=== PATIENT | female | born 1930 | race Caucasian/White ===

== ENCOUNTER 2018-02-26 11:55 | Emergency (ER) | payer OTHER ==
[~2018-02-26] VITALS: Ht 165.1 cm; Wt 81.2 kg
[~2018-02-26 11:55] MED LIST: ASPIRIN325 PO; HYDREA 500 MG500 M1 PO; HYDROCHLOROTHIA25 M1 PO; KLOR-CON 1010 MEQ PO; LASIX 40 MG TAB40 M2 PO; LESCOL40 MG PO; LEVAQUIN 250 M250 MG PO; LEVOTHYROXIN0.112 M1 PO; PRINIVIL20 MG PO; TOPROL XL100 MG PO; VITAMIN D2400 UNIT PO
[2018-02-26] MEDS ORDERED: REQUIP 1 MG TABL1 M1 PO (12:37)
[2018-02-26 12:48] LABS: HEMATOCRIT 57.3 % (37.0-47.0); MCH 34.8 pg (26.0-34.0); MCHC 33.2 g/dL (28.0-37.0); MCV 104.7 fL (80.0-100.0); MPV 8.8 fl. (7.2-11.1); NUCLEATED RBCS 0 /100WBC; PLATELET COUNT* 505 thou/uL (150-400); RBC 5.47 mil/uL (4.20-5.00); RDW-CV 14.8 % (10.5-14.5); WBC 15.9 thou/uL (4.0-11.0)
[2018-02-26 12:52] LABS: CALCIUM 9.1 mg/dL (8.5-10.1); CREATININE 0.8 mg/dL (0.6-1.3); POTASSIUM 3.9 mmol/L (3.5-5.1)
[2018-02-26 12:56] LABS: ALBUMIN 3.9 g/dL (3.4-5.0); TOTAL BILIRUBIN 0.5 mg/dL (<0.1-1.0); TOTAL PROTEIN 7.5 g/dL (6.4-8.2)
[2018-02-26 13:20] LABS: URINE BILIRUBIN NEGATIVE (Negative); URINE BLOOD NEGATIVE (Negative); URINE CLARITY CLEAR; URINE COLOR YELLOW; URINE GLUCOSE-RANDOM NEGATIVE (Negative); URINE KETONES NEGATIVE (Negative); URINE LEUKOCYTES-REFLEX TRACE (Negative); URINE NITRITE-REFLEX NEGATIVE (Negative); URINE PROTEIN NEGATIVE (Negative); URINE SPECIFIC GRAVITY 1.015 (1.005-1.030); URINE UROBILINOGEN 0.2 E.U./dl (0.2-1.0)
[2018-02-26 13:32] LABS: BACTERIA-REFLEX None Seen /HPF (None Seen); CASTS None Seen /LPF (None Seen); CRYSTALS None Seen /LPF (None Seen); MUCUS None Seen strn/LPF (None Seen); SQUAMOUS 4-10 Moderate /LPF (0-3); URINE WBC-REFLEX 0-5 Rare /HPF (0-5)
[2018-02-26 13:49] LABS: ABSOLUTE LYMPHOCYTES 0.5 thou/uL (0.8-5.3); ABSOLUTE MONOCYTES 1.3 thou/uL (0.0-1.2); ABSOLUTE NEUTROPHILS 14.2 thou/uL (1.6-8.1); PLATELET ESTIMATE INCREASED
[2018-02-26 13:51] LABS: MACROCYTES 1+
[2018-02-26 13:54] LABS: URINE RBC None Seen /HPF (0-2)
[2018-02-26 14:44] VITALS: BP 142/63
--- NOTE | 2018-02-27 14:28 | EKG ---
[place] [address] ELECTROCARDIOGRAM REPORT Name: AFSHIN GARCES Room: [facility]#: [id number] Admission: 02/26/18 Attend Phys: Discharge: 02/26/18 Date of : 32 Report #: [id number] THIS REPORT FOR: //name// [facility] ED Test Date: 2018-02-26 Test Time: 12:08:26 Pat Name: AFSHIN GARCES Department: Room: Gender: F Hand Brush Filler: Beck CHAIREZ : 1930 Requested By: Norberto Mora Order Number: [id number] Reading MD: Riley Cervantes Measurements Intervals [place] Rate: 66 P: 12 NC: 224 QRS: -18 QRSD: 98 T: 40 QT: 414 QTc: 434 Interpretive Statements Sinus rhythm Prolonged NC interval Probable left ventricular hypertrophy Anterior Q waves, possibly due to LVH Compared to ECG 07/17/2016 13:59:52 First degree AV block now present Left ventricular hypertrophy now present Q waves now present T-wave abnormality no longer present Electronically Signed On 02-27-2018 14:28:23 CDT by Riley Cervantes [email or web address] <ELECTRONICALLY SIGNED> By: Riley Cervantes MD, FAC 02/27/18 1428 1208 1208 Riley Cervantes MD, FAC /EPI
== END 2018-02-26 14:54 | disposition home or self-care (01) ==
LOC: M.ERS 11:55
PROVIDERS: Nurse Practitioner Family
DX: R10.32 Left lower quadrant pain (principal); I10 Essential (primary) hypertension; E78.00 Pure hypercholesterolemia, unspecified; E03.9 Hypothyroidism, unspecified; M13.862 Other specified arthritis, left knee; M13.861 Other specified arthritis, right knee; Z90.49 Acquired absence of other specified parts of digestive tract; Z90.89 Acquired absence of other organs

== ENCOUNTER 2019-08-05 08:06 | Inpatient (IN) | payer OTHER ==
[~2019-08-05] VITALS: Ht 165.1 cm; Wt 88.1 kg
[~2019-08-05 08:06] MED LIST changes: +REQUIP 1 MG TABL1 M1 PO
[2019-08-05 08:07] VITALS: BP 136/61
[2019-08-05 08:29] LABS: ABSOLUTE LYMPHOCYTES 0.7 thou/uL (0.8-5.3); ABSOLUTE MONOCYTES 1.1 thou/uL (0.0-1.2); ABSOLUTE NEUTROPHILS 4.7 thou/uL (1.6-8.1); BASOPHILS 0.6 %; EOSINOPHILS 0.6 %; HEMATOCRIT 41.3 % (37.0-47.0); HEMOGLOBIN 14.1 gm/dL (12.0-15.0); LYMPHOCYTES 11.1 %; MCH 38.5 pg (26.0-34.0); MCHC 34.1 g/dL (28.0-37.0); MCV 113.1 fL (80.0-100.0); MONOCYTES 16.3 %; NUCLEATED RBCS 0 /100WBC; PLATELET COUNT* 308 thou/uL (150-400); POLYS 71.4 %; RBC 3.65 mil/uL (4.20-5.00); RDW-CV 15.5 % (10.5-14.5); WBC 6.6 thou/uL (4.0-11.0)
[2019-08-05 08:38] LABS: APTT 30.6 Seconds (25.0-31.3); CALCIUM 8.4 mg/dL (8.5-10.1); CREATININE 0.8 mg/dL (0.6-1.3); INR 1.1; POTASSIUM 3.8 mmol/L (3.5-5.1)
[2019-08-05 08:57] LABS: PLATELET ESTIMATE ADEQUATE
[2019-08-05 08:59] LABS: ANISOCYTOSIS 2+; MACROCYTES 2+; POIKILOCYTOSIS 1+
[2019-08-05 09:06] LABS: ALBUMIN 3.6 g/dL (3.4-5.0); CK-MB MASS 0.5 ng/mL (<0.5-3.6); MAGNESIUM 2.1 mg/dL (1.8-2.4); TOTAL BILIRUBIN 0.6 mg/dL (<0.1-1.0); TOTAL PROTEIN 6.5 g/dL (6.4-8.2)
[2019-08-05 14:10] VITALS: BP 133/68
--- NOTE | 2019-08-05 14:33 | EKG ---
[place] [address] ELECTROCARDIOGRAM REPORT Name: AFSHIN GARCES Room: [place] [address] ADM IN [facility].#: [id number] Admission: 08/05/19 Attend Phys: Sam Marroquin MD Discharge: Date of : 31 Report #: [id number] THIS REPORT FOR: //name// [facility] ED Test Date: 2019-08-05 Test Time: 08:16:02 Pat Name: AFSHIN GARCES Department: Room: [facility] Gender: F Environmental Science Instructor: : 1930 Requested By: Arnold Long Order Number: [id number] MD: Antione Avalos Measurements Intervals [place] Rate: 67 P: 46 ID: 197 QRS: -6 QRSD: 102 T: 44 QT: 400 QTc: 423 Interpretive Statements Sinus rhythm Probable left atrial enlargement Abnormal R-wave progression, late transition Nonspecific T abnormalities, anterior leads Compared to ECG 02/26/2018 12:08:26 T-wave abnormality now present First degree AV block no longer present Left ventricular hypertrophy no longer present Electronically Signed On 08-05-2019 14:32:39 THERMODYNAMICIST by Antione Avalos [email or web address] <ELECTRONICALLY SIGNED> By: Antione Avalos MD, FACC 08/05/19 1432 5 5 Antione Avalos MD, FACC /EPI
--- NOTE | 2019-08-05 16:33 | 2DMMODE ---
[place] [address] 2 D/M-MODE ECHOCARDIOGRAM Name: AFSHIN GARCES Room: [place] [address] ADM IN .R.#: [id number] Admission: 08/05/19 Attend Phys: Sam Marroquin, Discharge: Date of : 32 Date of Service: 08/05/19 1633 Report #: [id number] THIS REPORT FOR: //name// APPROVED REPORT Study performed: 08/05/2019 15:41:47 EXAM: Comprehensive 2D, Doppler, and color-flow Echocardiogram Patient Location: Bedside BSA: 1.89 HR: 63 bpm BP: 136/61 mmHg Other Information Study Quality: Fair Indications Dyspnea 2D Dimensions IVSd: 12.28 (7-11mm) LVOT Diam: 21.23 (18-24mm) LVDd: 46.99 mm PWd: 11.48 (7-11mm) Ascending Ao: 31.38 (22-36mm) LVDs: 36.97 (25-40mm) Aortic Root: 29.93 mm Volumes Left Atrial Volume (Systole) LA ESV Index: 26.10 mL/m2 Aortic Valve AoV Peak Vikram.: 1.59 m/s AO Peak Gr.: 10.10 mmHg LVOT Max P.69 mmHg AO Mean Gr.: 5.99 mmHg LVOT Mean P.87 mmHg LVOT Max V: 0.65 m/s AO V2 VTI: 33.45 cm LVOT Mean V: 0.43 m/s ARACELI (VTI): 1.61 cm2 LVOT V1 VTI: 15.23 cm Mitral Valve E/A Ratio: 1.22 MV Decel. Time: 225.84 ms MV E Max Vikram.: 0.77 m/s MV PHT: 65.49 ms MVA (PHT): 3.36 [place]2 [place] [address] 2 D/M-MODE ECHOCARDIOGRAM Name: AFSHIN GARCES Room: [address] IN [facility].#: [id number] Admission: 08/05/19 Attend Phys: Sam Marroquin, Discharge: Date of : 31 Date of Service: 08/05/19 1633 Report #: [id number] TDI E/Lateral E': 8.56 E/Medial E': 7.00 Medial E' Vikram.: 0.11 m/s Lateral E' Vikram.: 0.09 m/s Pulmonary Valve PV Peak Vikram.: 0.96 m/s PV Peak Gr.: 3.71 mmHg Tricuspid Valve RAP Estimate: 5.00 mmHg TR Peak Gr.: 43.78 mmHg RVSP: 48.78 mmHg PA Pressure: 48.78 mmHg Left Ventricle The left ventricle is normal size. There is normal LV segmental wall motion. Mild concentric left ventricular hypertrophy. Left ventricular systolic function is normal. The left ventricular ejection fraction is within the normal range. LVEF is 60-65%. Right Ventricle The right ventricle is normal size. The right ventricular systolic function is normal. Atria The left atrium size is normal. Right atrium is mildly dilated. Aortic Valve The aortic valve is normal in structure. No aortic regurgitation is present. There is no aortic valvular stenosis. Mitral Valve The mitral valve is normal in structure. Mild mitral regurgitation. No evidence of mitral valve stenosis. Tricuspid Valve The tricuspid valve is normal in structure. Mild tricuspid regurgitation. estimated pa pressure 50 mm Hg Pulmonic Valve The pulmonary valve is normal in structure. Trace pulmonic regurgitation. Great Vessels The aortic root is normal in size. IVC [place] [address] 2 D/M-MODE ECHOCARDIOGRAM Name: AFSHIN GARCES Room: [address]#: [id number] Admission: 08/05/19 Attend Phys: Sam Marroquin, Discharge: Date of : 31 Date of Service: 08/05/19 1633 Report #: [id number] collapses >50% with inspiration. Pericardium Mild pericardial effusion. <Conclusion> Mild concentric left ventricular hypertrophy. LVEF is 60-65%. Mild mitral regurgitation. Mild tricuspid regurgitation. estimated pa pressure 50 mm Hg <ELECTRONICALLY SIGNED> By: Antione Avalos MD, FACC 08/05/19 163 32 32 Antione Avalos MD, FACC /INF
[2019-08-05 18:00] VITALS: BP 127/48
[2019-08-05 18:07] VITALS: BP 136/68
[2019-08-05 18:30] VITALS: BP 127/48
[2019-08-05 20:00] VITALS: BP 144/63
[2019-08-06] VITALS: BP 133/43
[2019-08-06 04:00] VITALS: BP 116/56
[2019-08-06 05:15] LABS: ABSOLUTE LYMPHOCYTES 0.9 thou/uL (0.8-5.3); ABSOLUTE MONOCYTES 1.2 thou/uL (0.0-1.2); ABSOLUTE NEUTROPHILS 4.8 thou/uL (1.6-8.1); BASOPHILS 0.4 %; EOSINOPHILS 0.4 %; HEMATOCRIT 38.8 % (37.0-47.0); HEMOGLOBIN 13.4 gm/dL (12.0-15.0); LYMPHOCYTES 12.8 %; MCH 38.8 pg (26.0-34.0); MCHC 34.7 g/dL (28.0-37.0); MONOCYTES 16.7 %; MPV 8.5 fl. (7.2-11.1); NUCLEATED RBCS 0 /100WBC; PLATELET COUNT* 304 thou/uL (150-400); POLYS 69.7 %; RBC 3.46 mil/uL (4.20-5.00); RDW-CV 15.3 % (10.5-14.5); WBC 6.9 thou/uL (4.0-11.0)
[2019-08-06 05:29] LABS: CREATININE 0.8 mg/dL (0.6-1.3); POTASSIUM 3.3 mmol/L (3.5-5.1)
[2019-08-06 08:00] VITALS: BP 130/53
[2019-08-06 12:03] VITALS: BP 138/56
--- NOTE | 2019-08-06 13:48 | CON ---
[address] [address] CONSULTATION Name: AFSHIN GARCES Room: [address] IN .R.#: [id number] Admission: 08/05/19 Attend Phys: Sam Marroquin MD Discharge: Date of : 31 Report #: [id number] THIS REPORT FOR: //name// CC: Sam Saavedra DO DATE OF SERVICE: 08/05/2019 CARDIOLOGY CONSULTATION HISTORY OF PRESENT ILLNESS: The patient is an 89-year-old single white female who I was asked to see in the Emergency Room today after she complained of palpitations. The patient denies previous history of heart disease. She is not very active at this time and uses a walker. She lives in an independent living. She apparently had nuclear stress test years ago done pharmacologically that showed no significant CAD. Recently, she has been short of breath and had edema. She had an echo 2 months ago at [place]. She was doing well until the past few days, she has had intermittent episodes in her heart where it skipped a few beats. She denied any lightheadedness or syncope. She called the ambulance and brought her here to [place]. She is admitted for further evaluation and treatment. PAST MEDICAL HISTORY: She has had a cholecystectomy. She has a history of hypertension and hyperlipidemia. MEDICATIONS ON ADMISSION: Include aspirin, Lescol, Lasix, hydrochlorothiazide, Synthroid, lisinopril, metoprolol, Hydrea and Requip. ALLERGIES: SHE HAS ALLERGY TO SULFA DRUGS. FAMILY HISTORY: Negative for heart disease. SOCIAL HISTORY: She is . She lives in [place] in an independent living. Quit smoking years ago, rarely drinks alcohol. REVIEW OF SYSTEMS: She has had no history of stroke. She has used an inhaler in the past. No history of peptic ulcer disease, liver disease, kidney disease, cancer, psychiatric illness or chronic skin condition. PHYSICAL EXAMINATION: GENERAL: Revealed an elderly female lying in bed. She appeared in no acute distress. VITAL SIGNS: Showed blood pressure of 130/60, pulse 60. She is afebrile. HEENT: She is anicteric. Conjunctivae are pink. Mucous membranes are moist. NECK: Neck veins are nondistended[place] [address] CONSULTATION Name: AFSHIN GARCES Room: [address]#: [id number] Admission: 08/05/19 Attend Phys: Sam Marroquin MD Discharge: Date of : 31 Report #: [id number] CHEST: Clear to auscultation. CARDIOVASCULAR: Regular rate and occasional prematurity. ABDOMEN: Soft. EXTREMITIES: Had 1+ pitting edema to the mid-tibial area. Dorsalis pedis pulse could not be palpated. SKIN: Cool and dry. NEUROLOGIC: Nonfocal. RADIOLOGICAL DATA: ECG shows a sinus rhythm, nonspecific ST-segment changes. Her workup in the Emergency Room today, she had a portable chest x-ray that showed normal heart size, clear lung castro. LABORATORY DATA: Sodium 143, BUN 15, creatinine 0.8. Troponin 0.06. BNP 1444. Her white blood cell count is 6.6, hemoglobin is 14.1. IMPRESSION AND RECOMMENDATIONS: 1. Palpitations. I would monitor the patient for evidence of arrhythmia. 2. Shortness of breath and edema. We recommend echocardiogram. 3. Hypertension. The patient is on diuretic, JAVIER inhibitor and beta frieda. 4. Hyperlipidemia. The patient is on a statin drug. 5. Chronic back pain. <ELECTRONICALLY SIGNED> By: Antione Avalos MD, FACC 08/06/19 1348 1418 2217Damarko Avalos MD, FACC /nt
[2019-08-06 16:00] VITALS: BP 138/61
--- NOTE | 2019-08-06 16:15 | EKG ---
[place] [address] ELECTROCARDIOGRAM REPORT Name: AFSHIN GARCES Yumiko Room: [address] ADM IN M.R.#: [id number] Admission: 08/05/19 Attend Phys: Sam Marroquin MD Discharge: Date of : 31 Report #: [id number] THIS REPORT FOR: //name// [facility] Test Date: 2019-08-05 Test Time: 20:46:37 Pat Name: AFSHIN GARCES Department: Room: [address] Gender: F Microfiche Camera Operator: jy : 1930 Requested By: Sam Marroquin Order Number: [id number] Reading MD: Raimundo Dumont Measurements Intervals [place] Rate: 65 P: 23 MI: 194 QRS: 16 QRSD: 100 T: 51 QT: 442 QTc: 460 Interpretive Statements Sinus rhythm Borderline T abnormalities, anterior leads Compared to ECG 08/05/2019 08:16:02 No significant changes Electronically Signed On 08-06-2019 16:14:58 SERVICES ACCOUNT MANAGER by Raimundo Dumont [email or web address] <ELECTRONICALLY SIGNED> By: Raimundo Dumont MD, [facility] 08/06/19 1614 45 45 Raimundo Dumont MD, [facility] /EPI
--- NOTE | 2019-08-06 16:30 | EKG ---
[place] [address] ELECTROCARDIOGRAM REPORT Name: AFSHIN GARCES Y[place]iko Room: [address] ADM IN .R.#: [id number] Admission: 08/05/19 Attend Phys: Sam Marroquin MD Discharge: Date of : 31 Report #: [id number] THIS REPORT FOR: //name// [facility] Test Date: 2019-08-05 Test Time: 23:02:28 Pat Name: AFSHIN GARCES Department: Room: [address] Gender: F Riddler Operator: JY : 1930 Requested By: Sam Marroquin Order Number: [id number] Reading MD: Raimundo Dumont Measurements Intervals [place] Rate: 106 P: NM: QRS: -5 QRSD: 88 T: 182 QT: 292 QTc: 388 Interpretive Statements Atrial fibrillation Anteroseptal infarct, old Borderline repolarization abnormality Compared to ECG 08/05/2019 08:16:02 Myocardial infarct finding now present Sinus rhythm no longer present Electronically Signed On 08-06-2019 16:29:33 IN FLIGHT TECHNICIAN by Raimundo Dumont [email or web address] <ELECTRONICALLY SIGNED> By: Raimundo Dumont MD, [facility] 08/06/19 1629 01 01 Raimundo Dumont MD, [facility] /EPI
[2019-08-06 20:20] VITALS: BP 130/55
[2019-08-07] VITALS: BP 123/52
[2019-08-07 04:00] VITALS: BP 124/57
[2019-08-07 08:00] VITALS: BP 105/54
[2019-08-07 09:41] LABS: CALCIUM 9.6 mg/dL (8.5-10.1)
[2019-08-07 11:45] VITALS: BP 101/52
--- NOTE | 2019-08-07 14:12 | EKG ---
[place] [address] ELECTROCARDIOGRAM REPORT Name: DEZAFSHIN Room: [address] ADM IN ..#: [id number] Admission: 08/05/19 Attend Phys: Sam Marroquin MD Discharge: Date of : 31 Report #: [id number] THIS REPORT FOR: //name// [facility] Test Date: 2019-08-07 Test Time: 08:18:43 Pat Name: AFSHIN GARCES Department: Room: [address] Gender: F Utility Person: : 1930 Requested By: Angela Fabian Order Number: [id number] MD: Raimundo Dumont Measurements Intervals [place] Rate: 66 P: 20 [place]: 207 QRS: -4 QRSD: 88 T: 91 QT: 472 QTc: 495 Interpretive Statements Sinus rhythm Probable left atrial enlargement Abnormal R-wave progression, late transition Borderline repolarization abnormality Borderline prolonged QT interval Compared to ECG 08/05/2019 23:02:28 Atrial fibrillation no longer present Myocardial infarct finding no longer present Electronically Signed On 08-07-2019 14:12:15 RIB TRIM SEPARATOR by Raimundo Dumont [email or web address] <ELECTRONICALLY SIGNED> By: Raimundo Dumont MD, [facility] 08/07/19 1412 7 7 Raimundo Dumont MD, [facility] /EPI
[2019-08-07 16:50] VITALS: BP 124/53
[2019-08-07 20:29] VITALS: BP 112/50
[2019-08-08] VITALS: BP 113/45
[2019-08-08 04:00] VITALS: BP 114/44
[2019-08-08 08:00] VITALS: BP 98/55
--- NOTE | 2019-08-08 12:57 | EKG ---
[place] [address] ELECTROCARDIOGRAM REPORT Name: AFSHNI GARCES Room: [address] ADM IN .R.#: [id number] Admission: 08/05/19 Attend Phys: Sam Marroquin MD Discharge: Date of : 31 Report #: [id number] THIS REPORT FOR: //name// [facility] Test Date: 2019-08-08 Test Time: 08:28:04 Pat Name: AFSHIN GARCES Department: Room: [address] Gender: F Oracle Database Analyst: : 1930 Requested By: Angela Fabian Order Number: [id number] Reading MD: Raimundo Dumont Measurements Intervals [place] Rate: 61 P: 13 IN: 211 QRS: -17 QRSD: 101 T: 50 QT: 510 QTc: 514 Interpretive Statements Sinus rhythm Borderline left axis deviation Abnormal R-wave progression, late transition Borderline T abnormalities, anterior leads Prolonged QT interval Compared to ECG 08/07/2019 08:18:43 T-wave abnormality now present Electronically Signed On 08-08-2019 12:57:33 RESTAURANT FRONT MANAGER by Raimundo Dumont [email or web address] <ELECTRONICALLY SIGNED> By: Raimundo Dumont MD, FACC 08/08/19 1257 0828 0828 Raimundo Dumont MD, [facility] /EPI
[2019-08-08 16:35] VITALS: BP 99/46
[2019-08-08 19:45] VITALS: BP 119/55
[2019-08-09] VITALS: BP 109/45
[2019-08-09 04:00] VITALS: BP 96/49
[2019-08-09] MEDS ORDERED: LEVO-T100 MCG PO (06:53)
[2019-08-09] MEDS ORDERED: PRAVACHOL40 MG PO ×2 (06:54→06:55)
[2019-08-09] MEDS ORDERED: FISH OIL 1,001000 M3 PO (06:56)
[2019-08-09] MEDS ORDERED: ELIQUIS5 MG PO (06:56)
[2019-08-09 08:00] VITALS: BP 106/47
[2019-08-09 09:14] VITALS: BP 96/49
[2019-08-09] MEDS ORDERED: SORINE 80 MG TA80 M1 PO (11:56)
[2019-08-09] MEDS ORDERED: PRINIVIL10 MG PO (11:56)
== END 2019-08-09 12:53 | disposition home or self-care (01) | DRG 291 ==
LOC: M.ERS 08:06 → M.2W 12:02 → M.TBA-ER 12:02 → M.2W 18:39
PROVIDERS: Family Medicine; Registered Nurse; ADMIT Internal Medicine
DX: I11.0 Hypertensive heart disease with heart failure (principal); I50.31 Acute diastolic (congestive) heart failure; I48.20 Chronic atrial fibrillation, unspecified; D68.69 Other thrombophilia; I48.92 Unspecified atrial flutter; E78.00 Pure hypercholesterolemia, unspecified; E03.9 Hypothyroidism, unspecified; E78.5 Hyperlipidemia, unspecified; G89.29 Other chronic pain; M54.9 Dorsalgia, unspecified; M19.90 Unspecified osteoarthritis, unspecified site; G60.0 Hereditary motor and sensory neuropathy; M17.0 Bilateral primary osteoarthritis of knee; Z90.49 Acquired absence of other specified parts of digestive tract; Z98.41 Cataract extraction status, right eye; Z98.42 Cataract extraction status, left eye; Z79.899 Other long term (current) drug therapy; Z79.82 Long term (current) use of aspirin; Z88.2 Allergy status to sulfonamides; Z23 Encounter for immunization

== ENCOUNTER 2019-10-07 08:29 | Inpatient (IN) | payer MEDICARE ==
[~2019-10-07] VITALS: Ht 165.1 cm; Wt 81.2 kg
[~2019-10-07 08:29] MED LIST changes: +ELIQUIS5 MG PO; +FISH OIL 1,001000 M3 PO; +LEVO-T100 MCG PO; +PRAVACHOL40 MG PO; +PRINIVIL10 MG PO; +SORINE 80 MG TA80 M1 PO
[2019-10-07 08:36] VITALS: BP 154/67
[2019-10-07 08:56] LABS: INFLUENZA A ANTIGEN Negative (Negative)
[2019-10-07 09:30] LABS: HEMATOCRIT 43.2 % (37.0-47.0); HEMOGLOBIN 14.7 gm/dL (12.0-15.0); MCH 38.8 pg (26.0-34.0); MCV 114.1 fL (80.0-100.0); NUCLEATED RBCS 0 /100WBC; PLATELET COUNT* 268 thou/uL (150-400); RBC 3.79 mil/uL (4.20-5.00); RDW-CV 14.8 % (10.5-14.5); WBC 5.2 thou/uL (4.0-11.0)
[2019-10-07 09:49] LABS: CALCIUM 8.4 mg/dL (8.5-10.1); CREATININE 0.8 mg/dL (0.6-1.3); POTASSIUM 4.2 mmol/L (3.5-5.1)
[2019-10-07 09:54] LABS: ALBUMIN 3.4 g/dL (3.4-5.0); TOTAL BILIRUBIN 0.7 mg/dL (<0.1-1.0); TOTAL PROTEIN 6.9 g/dL (6.4-8.2)
[2019-10-07 10:33] LABS: ABSOLUTE LYMPHOCYTES 0.6 thou/uL (0.8-5.3); ABSOLUTE MONOCYTES 1.8 thou/uL (0.0-1.2); ABSOLUTE NEUTROPHILS 2.8 thou/uL (1.6-8.1)
[2019-10-07 10:34] LABS: PLATELET ESTIMATE ADEQUATE
[2019-10-07 10:35] LABS: ANISOCYTOSIS 1+; POIKILOCYTOSIS 1+
[2019-10-07 11:06] VITALS: BP 122/55
[2019-10-07 16:00] VITALS: BP 118/51
--- NOTE | 2019-10-07 16:53 | EKG ---
[place] [address] ELECTROCARDIOGRAM REPORT Name: AFSHIN GARCES Room: [address] ADM IN ..#: [id number] Admission: 10/07/19 Attend Phys: Nita Ramirez Discharge: Date of : 32 Date of Service: 10/07/19 0922 Report #: [id number] THIS REPORT FOR: //name// [facility] ED Test Date: 2019-10-07 Test Time: 09:22:17 Pat Name: AFSHIN GARCES Department: Room: [facility] Gender: F Embossing Tool Setter: MS : 1930 Requested By: Ness Manzo Order Number: [id number] MD: Raimundo Dumont Measurements Intervals [place] Rate: 74 P: 20 MD: 187 QRS: -26 QRSD: 92 T: 72 QT: 422 QTc: 469 Interpretive Statements Sinus rhythm Borderline left axis deviation Consider anterior infarct Compared to ECG 08/08/2019 08:28:04 Myocardial infarct finding now present T-wave abnormality no longer present Prolonged QT interval no longer present Electronically Signed On 10-07-2019 16:52:33 CYBER INTEL PLANNER by Raimundo Dumont [email or web address] <ELECTRONICALLY SIGNED> By: Raimundo Dumont MD, FAC 10/07/19 1652 1 1 Raimundo Dumont MD, [facility] /EPI
--- NOTE | 2019-10-07 17:10 | NUR ---
ASSESSMENT COMPLETE. PT ALERT AND ORIENTED X4. ADMITTED WITH FLU B+. TAMIFLU GIVEN, IV FLUIDS INFUSING. CHEST XRAY COMPLETED THIS AFTERNOON, SEE REPORT. PT DENIES PAIN. PT IS ON 2L PER NC, SOA WITH MIN EXERTION. PT IS UP STANDBY ASSIST WITH CANE, STEADY. PT TOLERATING MEALS, DENIES N/V. PT IS IN DROPLET ISOLATION. SEE ASSESSMENT AND VITALS FOR OTHER DETAILS, CALL LIGHT WITHIN REACH. WILL CONTINUE PLAN OF CARE
[2019-10-07 20:30] VITALS: BP 115/56
--- NOTE | 2019-10-08 06:29 | NUR ---
PATIENT SLEPT PART OF THE NIGHT. IV FLUIDS CONTINUE TO INFUSE AT 50 ML/HR. PATIENT REMAINS ON OXYGEN AT 2L PER NASAL CANNULA. PATIENT REMAINS ON DROPLET PRECAUTIONS FOR INFLUENZA. WILL CONTINUE TO MONITOR.
[2019-10-08 07:24] VITALS: BP 140/65
--- NOTE | 2019-10-08 14:57 | NUR ---
CM ASSESSMENT: VISITED WITH PT IN ROOM. PT STATES SHE LIVES AT THE [facility]. SHE IS INDEPENDENT WITH ADLS AND MEDICATIONS. SHE DOES NOT DRIVE.SHE USES A CANE IN HER APARTMENT AND USES A WALKER FOR LONGER DISTANCES. DENIES NEED FOR HH. CM WILL CONTINUE TO FOLLOW NEEDED
--- NOTE | 2019-10-08 15:48 | NUR ---
ASSESSMENT COMPLETE. PT ALERT AND ORIENTED X4. PT UP AD LANDY IN ROOM. PT REPORTS FEELING BETTER TODAY, PLAN TO DC HOME TOMORROW. IV FLUIDS INFUSING. TOLERATING MEALS. PT DENIES PAIN. VSS. STEADY WITH CANE. SEE ASSESSMENT AND VITALS FOR OTHER DETAILS. PATIENT HAS NO OTHER CONCERNS. ISOLATION IN PLACE. CALL LIGHT WITHIN REACH, WILL CONTINUE PLAN OF CARE
[2019-10-08 16:00] VITALS: BP 108/44; BP 112/66
[2019-10-08 21:30] VITALS: BP 119/45
--- NOTE | 2019-10-09 06:05 | NUR ---
PATIENT SLEPT MOST OF THE NIGHT. IV REMAINS SALINE LOCKED. PATIENT REMAINS ON OXYGEN AT 2L. PATIENT IS POSSIBLY GOING HOME TODAY. WILL CONTINUE TO MONITOR.
[2019-10-09 08:20] VITALS: BP 109/44
[2019-10-09] MEDS ORDERED: TAMIFLU75 MG PO (10:58)
[2019-10-09] MEDS ORDERED: BENZONATATE100 MG PO (11:00)
[2019-10-09] MEDS ORDERED: SYMBICORT80 MCG/4.1 INH (11:04)
[2019-10-09 11:16] VITALS: BP 109/44
--- NOTE | 2019-10-09 12:05 | NUR ---
PATIENT DISCHARGED TO HOME. DISCHARGE PAPERS REVIEWED AND SIGNED. PRESCRIPTIONS TRANSMITTED TO PHARMACY AND INFORMATION SHEETS GIVEN. IV REMOVED. [place]ATEINT REFUSED NEED FOR HOME HEALTH. PATIENT DENIES ANY FURTHER NEEDS. PATIENT TAKEN BY WHEELCHAIR TO EXIT. LEFT WITH FRIEND.
== END 2019-10-09 12:05 | disposition home or self-care (01) | DRG 193 ==
LOC: M.ERS 08:29 → M.TBA-ER 10:36 → M.3W 10:36
PROVIDERS: Personal Emergency Response Attendant; ADMIT Internal Medicine
DX: J10.1 Influenza due to other identified influenza virus with other respiratory manifestations (principal); J80 Acute respiratory distress syndrome; I50.32 Chronic diastolic (congestive) heart failure; I11.0 Hypertensive heart disease with heart failure; E78.00 Pure hypercholesterolemia, unspecified; E78.5 Hyperlipidemia, unspecified; E03.9 Hypothyroidism, unspecified; G25.81 Restless legs syndrome; I48.91 Unspecified atrial fibrillation; G60.0 Hereditary motor and sensory neuropathy; M17.0 Bilateral primary osteoarthritis of knee; Z90.49 Acquired absence of other specified parts of digestive tract; Z98.42 Cataract extraction status, left eye; Z98.41 Cataract extraction status, right eye; Z79.01 Long term (current) use of anticoagulants; Z79.899 Other long term (current) drug therapy; Z87.891 Personal history of nicotine dependence

== ENCOUNTER 2019-10-10 00:26 | Inpatient (IN) | payer MEDICARE ==
[~2019-10-10] VITALS: Ht 175.3 cm; Wt 80.7 kg
[~2019-10-10 00:26] MED LIST changes: +BENZONATATE100 MG PO; +SYMBICORT80 MCG/4.1 INH; +TAMIFLU75 MG PO
[2019-10-10 00:27] VITALS: BP 165/80
[2019-10-10 01:09] LABS: ABSOLUTE BASOPHILS 0.1 thou/uL (0.0-0.2); ABSOLUTE EOSINOPHILS 0.1 thou/uL (0.0-0.7); ABSOLUTE LYMPHOCYTES 0.9 thou/uL (0.8-5.3); ABSOLUTE MONOCYTES 1.1 thou/uL (0.0-1.2); ABSOLUTE NEUTROPHILS 3.5 thou/uL (1.6-8.1); BASOPHILS 1.2 %; EOSINOPHILS 1.3 %; HEMATOCRIT 39.3 % (37.0-47.0); HEMOGLOBIN 13.6 gm/dL (12.0-15.0); MCH 38.9 pg (26.0-34.0); MCHC 34.5 g/dL (28.0-37.0); MCV 112.8 fL (80.0-100.0); MONOCYTES 19.9 %; MPV 8.8 fl. (7.2-11.1); NUCLEATED RBCS 0 /100WBC; PLATELET COUNT* 300 thou/uL (150-400); POLYS 61.6 %; RBC 3.48 mil/uL (4.20-5.00); RDW-CV 14.9 % (10.5-14.5); WBC 5.7 thou/uL (4.0-11.0)
[2019-10-10 01:16] LABS: CREATININE 0.7 mg/dL (0.6-1.3); POTASSIUM 3.9 mmol/L (3.5-5.1)
[2019-10-10 01:26] LABS: ALBUMIN 3.5 g/dL (3.4-5.0); TOTAL BILIRUBIN 0.4 mg/dL (<0.1-1.0)
[2019-10-10 02:42] LABS: ANISOCYTOSIS 1+; MACROCYTES 2+
[2019-10-10 05:03] VITALS: BP 125/53
[2019-10-10 08:20] VITALS: BP 121/53
[2019-10-10 08:30] VITALS: BP 148/43
--- NOTE | 2019-10-10 11:19 | EKG ---
[place] [address] ELECTROCARDIOGRAM REPORT Name: AFSHIN GARCES Room: [address] IN ..#: [id number] Admission: 10/10/19 Attend Phys: Lukasz Esteban, Discharge: Date of : 31 Date of Service: 10/10/19 0033 Report #: [id number] THIS REPORT FOR: //name// [facility] ED Test Date: 2019-10-10 Test Time: 00:33:01 Pat Name: AFSHIN GARCES Department: Room: [facility] Gender: F Electrode Cleaning Machine Operator: [place] : 1930 Requested By: Suhas Bryant Order Number: [id number] MD: Rakesh Manley Measurements Intervals [place] Rate: 68 P: 26 TN: 209 QRS: 12 QRSD: 100 T: 55 QT: 411 QTc: 438 Interpretive Statements Sinus rhythm Borderline low voltage, extremity leads Abnormal R-wave progression, late transition Compared to ECG 10/07/2019 09:22:17 Myocardial infarct finding no longer present Electronically Signed On 10-10-2019 11:18:33 TILE EDGER by Rakesh Manley [email or web address] <ELECTRONICALLY SIGNED> By: Rakesh Manley MD, FAC 10/10/19 1118 0033 0033 Rakesh Manley MD, [facility] /EPI
--- NOTE | 2019-10-10 18:18 | NUR ---
I ASSUMED CARE OF THE PATIENT AT 0915 AN ADMISSION FROM THE ED. SHE IS ALERT AND ORIENTED X4 AND IS UP AD LANDY SAFELY. PATIENT LIVES AT THE [facility] AND WAS ONLY HOME FOR A SHORT TIME BEFORE SHE RETURNED WITH SOA. SHE IS ON 2 LITERS OF OXYGEN. BED IS IN THE LOW LOCKED POSITION AND CALL LIGHT IS IN REACH. HOURLY ROUNDING IS COMPLETE AND PATIENT NEEDS ARE MET. PAIN IS DENIED. SHE IS RESTING COMFORTABLY AND GETTING BREATHING TREATMENTS. PATIENT REMAINS IN ISOLATION FOR INFLUENZA. WILL CONTINUE TO MONITOR.
[2019-10-10 20:30] VITALS: BP 120/53
--- NOTE | 2019-10-11 05:46 | NUR ---
PATIENT SLEPT WELL DURING THIS SHIFT. PT WITH SALINE LOCK; PATENT. PT UP TO BATHROOM WITH STEADY GAIT. PT ON O2 @ 2LITERS PER NASAL CANNULA. PT DENIES PAIN/NAUSEA DURING THIS SHIFT. FREQUENTLY USED ITEMS AND CALL LIGHT WITHIN REACH. SIDERAILS UPX2. WILL CONTINUE TO MONITOR.
[2019-10-11 08:26] VITALS: BP 121/54
[2019-10-11 13:36] VITALS: BP 114/50
[2019-10-11] MEDS ORDERED: SPIRIVA RESPIMAT4 G1 INH (13:39)
[2019-10-11] MEDS ORDERED: COMBIVENT INH (15:02)
[2019-10-11] MEDS ORDERED: VENTOLIN HFA INH8 GM INH (15:02)
--- NOTE | 2019-10-11 15:03 | NUR ---
SW sent referral information to oxygen company however pt does not have a qualifying diagnosis to be able to receive home oxygen. Pt lives at [facility] and pt to provide pt ride whenever pt is ready to dc.
[2019-10-11 15:24] VITALS: BP 123/57
--- NOTE | 2019-10-11 15:25 | NUR ---
PT ORDERS RECEIVED AND ACKNOWLEDGED. PT PREPARING FOR DISCHARGE BACK TO THE [place]. PT INDICATES SHE DOES NOT FEEL PT SERVICES ARE INDICATED AT THIS TIME. PT VOICES NO CONCERNS WITH DISCHARGE BACK TO HOME. WILL DISCHARGE PT ORDERS PER PT REQUEST.
--- NOTE | 2019-10-11 19:32 | NUR ---
PATIENT AWAKE IN BED WITH OXYGEN AT 1L. PATIENT AMBULATED IN ROOM AND HALLWAY THIS SHIFT. ALL SAFETY MEASURES MAINTAINED. PATIENT DENIES FURTHER NEEDS AT THIS TIME. DR. NORRIS NOTIFIED OF RT REST AND WALKING O2 SATURATION RESULTS. DISCHARGE DELAYED.
[2019-10-11 19:50] VITALS: BP 130/54
--- NOTE | 2019-10-12 05:42 | NUR ---
PT ALERT AND ORIENTED. VSS ON 2L NC. PT WAS SATTING AT 89% ON RA, O2 WAS DISCONNECTED. MEDS GIVEN PER EMAR. PT DENIES PAIN N/V THIS SHIFT. PT VOICED CONCERN ABOUT INSURANCE REFUSING TO BUY HER HOME OXYGEN. DROPLET ISOLATION IN PLACE. PT AMBULATES INDEPENDENTLY. PT EDUCATED ON FALL PRECAUTION AND INFORMED TO CALL IF NEEDING HELP. CALL LIGHT WITHIN REACH. HOURLY ROUNDINGS MADE. WILL CONTINUE TO MONITOR.
[2019-10-12 07:40] VITALS: BP 97/58
[2019-10-12 08:59] LABS: HEMATOCRIT 42.8 % (37.0-47.0); HEMOGLOBIN 14.7 gm/dL (12.0-15.0); MCH 38.4 pg (26.0-34.0); MCHC 34.2 g/dL (28.0-37.0); MCV 112.2 fL (80.0-100.0); MPV 8.4 fl. (7.2-11.1); RBC 3.82 mil/uL (4.20-5.00); WBC 8.3 thou/uL (4.0-11.0)
[2019-10-12 09:17] LABS: CALCIUM 9.3 mg/dL (8.5-10.1); CREATININE 0.7 mg/dL (0.6-1.3); POTASSIUM 4.3 mmol/L (3.5-5.1)
[2019-10-12 16:00] VITALS: BP 159/51
--- NOTE | 2019-10-12 16:39 | NUR ---
PATIENT UP AD LANDY WITHOUT DIFFICULTY. PATIENT DOWN TO 1L, NO DIFFICULTY NOTED. IV STARTED TO RIGHT HAND FOR FOR DAILY IV ABX, IV THEN SL. DR. MOROCHO WAS NOTIFIED THIS AM ABOUT CT CHEST RESULTS, NO NEW ORDERS RECEIVED.
[2019-10-12 19:50] VITALS: BP 127/53
--- NOTE | 2019-10-13 05:48 | NUR ---
PT ALERT AND ORIENTED. VSS ON 1L NC. AD LANDY. PT VERBALIZES FEELING MUCH BETTER. MEDS GIVEN PER EMAR. PT DENIES PAIN N/V. PT SLEPT WELL THIS SHIFT. ISOLATION IN PLACE. CALL LIGHT WITHIN REACH. HOURLY ROUNDINGS MADE. WILL CONTINUE TO MONITOR.
[2019-10-13 08:00] VITALS: BP 127/58
[2019-10-13 16:00] VITALS: BP 113/54
--- NOTE | 2019-10-13 16:08 | NUR ---
PATIENT UP AD LANDY. 02 ON STANDBY AT THIS TIME. IV SL, SCHED ABX INFUSED THIS AM ORDERED. NO COMPLAINTS THIS SHIFT. PATIENT HOPING TO DISCHARGE SOON.
--- NOTE | 2019-10-14 05:09 | NUR ---
PT ALERT AND ORIENTED. VSS ON RA. MEDS GIVEN PER EMAR. PT DENIES PAIN N/V THIS SHIFT. PT SLEPT WELL THIS SHIFT. ISOLATION PRECAUTION IN PLACE. CALL LIGHT WITHIN REACH. HOURLY ROUNDINGS MADE. WILL CONTINUE TO MONITOR.
--- NOTE | 2019-10-14 05:24 | NUR ---
PT ALERT AND ORIENTED. VSS ON RA. MEDS GIVEN PER EMAR. PT DENIES PAIN N/V THIS SHIFT. PT SLEPT OFF AND ON THIS SHIFT. PT UP AD LANDY. ISOLATION WITHIN REACH. HOURLY ROUNDINGS MADE. WILL CONTINUE TO MONITOR.
[2019-10-14 07:09] VITALS: BP 117/54
[2019-10-14] MEDS ORDERED: TAMIFLU75 MG PO (11:23)
[2019-10-14] MEDS ORDERED: PREDNISONE 10 M10 MG PO (11:23)
[2019-10-14] MEDS ORDERED: CEFDINIR300 MG PO (11:23)
[2019-10-14 14:04] VITALS: BP 117/54
--- NOTE | 2019-10-14 14:31 | NUR ---
PT DC HOME. PRESCRIPTIONS SENT VIA E-SCRIPT BY PROVIDER TO PHARMACY, PATIENT REPORTS CALL FROM PHARMACY STATING THEY ARE READY. DC INSTRUCTIONS GIVEN. PT VERBALIZES UNDERSTANDING. IV DC'D WITHOUT COMPLICATIONS. ALL BELONGINGS SENT WITH PT. SEE ASSESSMENT AND VITALS FOR OTHER DETAILS.
[2019-10-14 14:51] VITALS: BP 117/54
--- NOTE | 2019-10-14 15:27 | EKG ---
[place] [address] ELECTROCARDIOGRAM REPORT Name: AFSHIN GARCES Room: [address] IN .#: [id number] Admission: 10/10/19 Attend Phys: Lukasz Esteban, Discharge: 10/14/19 Date of : 32 Date of Service: 10/13/19 2216 Report #: [id number] THIS REPORT FOR: //name// [facility] Test Date: 2019-10-13 Test Time: 22:16:13 Pat Name: AFSHIN GARCES Department: Room: [address] Gender: F Cognos Architect: [email or web address] : 1930 Requested By: Lukasz Esteban Order Number: [id number] Reading MD: Antione Avalos Measurements Intervals [place] Rate: 95 P: MS: QRS: 1 QRSD: 89 T: 56 QT: 362 QTc: 455 Interpretive Statements Atrial fibrillation Abnormal R-wave progression, late transition Borderline repol abnormality, diffuse leads Baseline wander in lead(s) I,II,aVR Compared to ECG 10/10/2019 00:33:01 Sinus rhythm no longer present Electronically Signed On 10-14-2019 15:26:12 GEOTECHNICAL INTERN by Antione Avalos [email or web address] <ELECTRONICALLY SIGNED> By: Antione Avalos MD, [facility] 10/14/19 1526 15 15 Antione Avalos MD, [facility] /EPI
== END 2019-10-14 14:45 | disposition home or self-care (01) | DRG 193 ==
LOC: M.ERS 00:26 → M.TBA-ER 02:08 → M.3W 02:08
PROVIDERS: Emergency Medicine; Internal Medicine; ADMIT Internal Medicine
DX: J10.00 Influenza due to other identified influenza virus with unspecified type of pneumonia (principal); J80 Acute respiratory distress syndrome; J15.9 Unspecified bacterial pneumonia; I10 Essential (primary) hypertension; E78.5 Hyperlipidemia, unspecified; E03.9 Hypothyroidism, unspecified; J44.9 Chronic obstructive pulmonary disease, unspecified; I48.91 Unspecified atrial fibrillation; E78.00 Pure hypercholesterolemia, unspecified; M17.0 Bilateral primary osteoarthritis of knee; G60.0 Hereditary motor and sensory neuropathy; J30.2 Other seasonal allergic rhinitis; Z90.49 Acquired absence of other specified parts of digestive tract; Z90.89 Acquired absence of other organs; Z98.42 Cataract extraction status, left eye; Z79.01 Long term (current) use of anticoagulants; Z98.41 Cataract extraction status, right eye; Z87.891 Personal history of nicotine dependence; Z79.899 Other long term (current) drug therapy

== ENCOUNTER 2020-05-10 19:26 | Emergency (ER) | payer MEDICARE ==
[~2020-05-10] VITALS: Ht 165.1 cm; Wt 88.5 kg
[~2020-05-10 19:26] MED LIST changes: +CEFDINIR300 MG PO; +COMBIVENT INH; +PREDNISONE 10 M10 MG PO; +SPIRIVA RESPIMAT4 G1 INH; +VENTOLIN HFA INH8 GM INH
[2020-05-10 20:07] LABS: HEMATOCRIT 43.1 % (37.0-47.0); MCH 38.4 pg (26.0-34.0); MCHC 34.8 g/dL (28.0-37.0); MCV 110.4 fL (80.0-100.0); MPV 8.2 fl. (7.2-11.1); NUCLEATED RBCS 0 /100WBC; PLATELET COUNT* 390 thou/uL (150-400); RDW-CV 16.9 % (10.5-14.5); WBC 9.6 thou/uL (4.0-11.0)
[2020-05-10 20:12] LABS: CALCIUM 8.7 mg/dL (8.5-10.1); CREATININE 1.3 mg/dL (0.6-1.3); POTASSIUM 3.9 mmol/L (3.5-5.1)
[2020-05-10 20:15] LABS: APTT 34.5 Seconds (25.0-31.3); INR 1.2; PROTIME 11.9 Seconds (9.20-11.50)
[2020-05-10 20:23] LABS: ALBUMIN 3.8 g/dL (3.4-5.0); TOTAL BILIRUBIN 0.5 mg/dL (<0.1-1.0); TOTAL PROTEIN 7.1 g/dL (6.4-8.2)
[2020-05-10 20:54] LABS: ABSOLUTE EOSINOPHILS 0.2 thou/uL (0.0-0.7); ABSOLUTE LYMPHOCYTES 0.7 thou/uL (0.8-5.3); ABSOLUTE NEUTROPHILS 7.8 thou/uL (1.6-8.1); ANISOCYTOSIS 1+; MACROCYTES 1+; PLATELET ESTIMATE ADEQUATE
[2020-05-11 00:21] VITALS: BP 135/47
--- NOTE | 2020-05-11 14:58 | EKG ---
[place] [address] ELECTROCARDIOGRAM REPORT Name: AFSHIN GARCES Room: [facility]#: [id number] Admission: 05/10/20 Attend Phys: Discharge: 05/11/20 Date of : 32 Date of Service: 05/10/201932 Report #: [id number] THIS REPORT FOR: //name// [facility] ED Test Date: 2020-05-10 Test Time: 19:33:36 Pat Name: AFSHIN GARCES Department: Room: Gender: Equipment Installer: [place] : 1930 Requested By: Ness Manzo Order Number: [id number] MD: Raimundo Dumont Measurements Intervals [place] Rate: 78 P: 24 ME: 209 QRS: 0 QRSD: 94 T: 52 QT: 426 QTc: 486 Interpretive Statements Sinus rhythm Probable left atrial enlargement Borderline prolonged QT interval Baseline wander in lead(s) V5 Compared to ECG 10/13/2019 22:16:13 Atrial fibrillation no longer present Electronically Signed On 05-11-2020 14:57:54 CDT by Raimundo Dumont [email or web address] <ELECTRONICALLY SIGNED> By: Raimundo Dumont MD, [facility] 05/11/20 1457 32 32 Raimundo Dumont MD, [facility] /EPI
== END 2020-05-11 00:19 | disposition home or self-care (01) ==
LOC: M.ERS 19:26
PROVIDERS: Personal Emergency Response Attendant
DX: R00.2 Palpitations (principal); R60.0 Localized edema; I10 Essential (primary) hypertension; E78.5 Hyperlipidemia, unspecified; I48.91 Unspecified atrial fibrillation; E03.9 Hypothyroidism, unspecified

== ENCOUNTER 2020-11-20 11:28 | Inpatient (IN) | payer MEDICARE ==
[~2020-11-20] VITALS: Ht 165.1 cm; Wt 84.5 kg
--- NOTE | ~2020-11-20 | PROC ---
[address] [address] PROCEDURE REPORT Name: AFSHIN GARCES Room: [address] IN M.R.#: [id number] Admission: 11/20/20 Attend Phys: Lukasz Esteban MD Discharge: Date of : 31 Report #: [id number] THIS REPORT FOR: cc: Mihaela Saavedra Linda J. DO NAKUL,Medical Records Staff ~ For GI report, please see the Provation report in Perceptive 7 content. By: 1437Medical Records Staff SRINIVAS /FRANCY
[2020-11-20 11:30] VITALS: BP 139/34
[2020-11-20 12:03] LABS: HEMATOCRIT 37.2 % (37.0-47.0); HEMOGLOBIN 12.3 gm/dL (12.0-15.0); NUCLEATED RBCS 0 /100WBC; PLATELET COUNT* 159 thou/uL (150-400); RBC 3.16 mil/uL (4.20-5.00); RDW-CV 17.6 % (10.5-14.5); WBC 4.3 thou/uL (4.0-11.0)
[2020-11-20 12:11] LABS: CALCIUM 8.8 mg/dL (8.5-10.1); CREATININE 0.8 mg/dL (0.6-1.3); POTASSIUM 3.9 mmol/L (3.5-5.1)
[2020-11-20 12:13] LABS: INR 1.3; PROTIME 13.3 Seconds (9.20-11.50)
[2020-11-20 12:16] LABS: ALBUMIN 3.2 g/dL (3.4-5.0); TOTAL PROTEIN 6.6 g/dL (6.4-8.2)
--- NOTE | 2020-11-20 12:30 | NUR ---
PT REFUSED TO HAVE DIGITAL RECTAL EXAM AT THIS TIME.
[2020-11-20 12:53] LABS: ABSOLUTE BASOPHILS 0.1 thou/uL (0.0-0.2); ABSOLUTE EOSINOPHILS 0.1 thou/uL (0.0-0.7); ABSOLUTE LYMPHOCYTES 0.3 thou/uL (0.8-5.3); ABSOLUTE MONOCYTES 0.5 thou/uL (0.0-1.2); ABSOLUTE NEUTROPHILS 3.1 thou/uL (1.6-8.1); ATYPICAL LYMPHS 1 %; ATYPICAL MONONUCLEARS 4 %
[2020-11-20 12:54] LABS: ANISOCYTOSIS 1+; LARGE PLATELETS FEW; MICROCYTES 2+; PLATELET ESTIMATE ADEQUATE
[2020-11-20] MEDS ORDERED: ASA81BEC PO (12:55)
[2020-11-20] MEDS ORDERED: KLOR-CON 10 ER10 MEQ PO (12:55)
[2020-11-20 12:56] LABS: GIANT PLATELETS RARE
[2020-11-20] MEDS ORDERED: TOPROL XL100 MG PO (12:56)
[2020-11-20 13:00] LABS: BLASTS 2 %
--- NOTE | 2020-11-20 14:54 | EKG ---
[place] [address] ELECTROCARDIOGRAM REPORT Name: AFSHIN GARCES FRANCHESCA Room: [place] [address] ADM IN ..#: [id number] Admission: 11/20/20 Attend Phys: Lukasz Esteban, Discharge: Date of : 32 Date of Service: 11/20/20 1143 Report #: [id number] THIS REPORT FOR: //name// [facility] ED Test Date: 2020-11-20 Test Time: 11:43:26 Pat Name: AFSHIN GARCES Department: Room: [facility] Gender: F Mysql Developer: CHRISTIANNE : 1930 Requested By: Michel Freeman Order Number: [id number] MD: Antione Avalos Measurements Intervals [place] Rate: 83 P: 8 CT: 196 QRS: -10 QRSD: 91 T: 120 QT: 365 QTc: 429 Interpretive Statements Sinus rhythm Abnormal R-wave progression, late transition Borderline repolarization abnormality Baseline wander in lead(s) I,III,aVL Compared to ECG 05/10/2020 19:33:36 No significant changes Electronically Signed On 11-20-2020 14:54:36 CDT by Antione Avalos [email or web address] <ELECTRONICALLY SIGNED> By: Antione Avalos MD, [facility] 11/20/20 1454 1143 1143 Antione Avalos MD, [facility] /EPI
--- NOTE | 2020-11-20 15:46 | NUR ---
PT BEING TAKEN TO NUC MED AT THIS TIME. NS IS BEING STOPPED AND DISCONNECTED. IT WILL BE RECONNECTED UPON RETURN TO ER.
[2020-11-20 17:20] LABS: HEMATOCRIT 34.2 % (37.0-47.0); HEMOGLOBIN 11.6 gm/dL (12.0-15.0)
--- NOTE | 2020-11-20 17:31 | NUR ---
PT RETURNED FROM [facility] AND IS BEING TAKEN UPSTAIRS TO INPATIENT ROOM AT THIS TIME.
[2020-11-20 17:34] VITALS: BP 111/64
[2020-11-20 17:38] LABS: URINE BLOOD TRACE (Negative); URINE CLARITY CLEAR; URINE COLOR YELLOW; URINE GLUCOSE-RANDOM NEGATIVE (Negative); URINE KETONES NEGATIVE (Negative); URINE LEUKOCYTES-REFLEX 1+ (Negative); URINE NITRITE-REFLEX NEGATIVE (Negative); URINE PROTEIN TRACE (Negative); URINE SPECIFIC GRAVITY >= 1.030 (1.005-1.030); URINE UROBILINOGEN 0.2 E.U./dl (0.2-1.0)
[2020-11-20 17:41] LABS: ICTOTEST (BILI CONFIRMATORY) Negative (Negative); URINE BILIRUBIN 1+ (Negative)
[2020-11-20 17:48] LABS: MUCUS None Seen strn/LPF (None Seen); SQUAMOUS >10 Many /LPF (0-3)
[2020-11-20 17:49] VITALS: BP 116/40
[2020-11-20 17:49] LABS: BACTERIA-REFLEX >30 Many /HPF (None Seen); URINE WBC-REFLEX 6-15 Few /HPF (0-5)
[2020-11-20 17:50] LABS: CASTS None Seen /LPF (None Seen); CRYSTALS None Seen /LPF (None Seen); URINE RBC None Seen /HPF (0-2)
[2020-11-20] MEDS ORDERED: HYDROCHLOROTHIA25 M1 PO (18:20)
[2020-11-20] MEDS ORDERED: PRAVACHOL40 MG PO (18:20)
[2020-11-20] MEDS ORDERED: METOPROLOL SUCC25 M1 PO (18:22)
[2020-11-20] MEDS ORDERED: FISH OIL 1,001000 M3 PO (18:22)
[2020-11-20] MEDS ORDERED: KLOR-CON 1010 MEQ PO (18:22)
[2020-11-20] MEDS ORDERED: ELIQUIS5 MG PO (18:23)
[2020-11-20 20:00] VITALS: BP 122/39
[2020-11-20 23:06] LABS: HEMOGLOBIN 12.2 g/dL (11.1-15.9)
[2020-11-20 23:49] VITALS: BP 126/51
[2020-11-21 04:10] VITALS: BP 118/64
[2020-11-21 04:12] LABS: HEMATOCRIT 31.7 % (37.0-47.0); HEMOGLOBIN 10.7 gm/dL (12.0-15.0); MCH 39.4 pg (26.0-34.0); MCHC 33.7 g/dL (28.0-37.0); MCV 117.1 fL (80.0-100.0); RBC 2.71 mil/uL (4.20-5.00); RDW-CV 17.3 % (10.5-14.5); WBC 4.6 thou/uL (4.0-11.0)
[2020-11-21 04:22] LABS: CALCIUM 8.4 mg/dL (8.5-10.1); CREATININE 0.8 mg/dL (0.6-1.3); MAGNESIUM 2.1 mg/dL (1.8-2.4)
--- NOTE | 2020-11-21 06:27 | NUR ---
ASSUMED CARE OF PT AFTER REPORT AT 1930. PT A&OX4. FORGETFUL AT TIMES. VSS. PHYSICAL ASSESSMENT COMPLETED AND CHARTED. PT O2 SAT 87-88%-PLACED ON O2 AT 2L NC. MAINTAINED ON CLEAR LIQUID DIET. PT DENIES ANY PAIN. FALL PRECAUTIONS IN PLACE. CALL LIGHT WITHIN REACH.
[2020-11-21 09:00] VITALS: BP 118/45
[2020-11-21 09:23] LABS: % SATURATION 22 % (20-39); IRON 39 ug/dL (50-175)
--- NOTE | 2020-11-21 09:50 | NUR ---
CM SPOKE TO THE PT TO DISCUSS CM ASSESSMENT. PT A&O,INDEPENDENT WITH ADL'S. PT [facility]ID[facility] AT [facility]. PT INFORMS THAT HER GRANDDAUGHTER POLO IS HER SOURCE OF SUPPORT. PT USES A CANE OR WALKER FOR MOBILITY. PT HAS 0 HX OF HH OR SNF. CM WILL REMAIN AVAILABLE TO ASSIST AND FOLLOW NEEDED.
[2020-11-21 12:00] VITALS: BP 101/40
[2020-11-21 16:00] VITALS: BP 113/44
--- NOTE | 2020-11-21 19:00 | NUR ---
PT. AOX4, VSS, DENIES PAIN OR DISCOMFORT. NO BLOODY STOOLS NOTED. CALL LIGHT AND PERSONAL BELONGINGS PLACED WITHIN REACH. TRANSFERS WITH ASSISTX1 TO BED SIDE COMMODE. PT. IN STABLE CONDITION AT TIME OF SHIFT CHANGE.
[2020-11-21 20:00] VITALS: BP 105/46
[2020-11-22] VITALS: BP 109/43
[2020-11-22 03:35] LABS: HEMATOCRIT 31.3 % (37.0-47.0); HEMOGLOBIN 10.4 gm/dL (12.0-15.0); MCH 38.7 pg (26.0-34.0); MCHC 33.3 g/dL (28.0-37.0); MCV 116.2 fL (80.0-100.0); MPV 9.8 fl. (7.2-11.1); RBC 2.69 mil/uL (4.20-5.00); RDW-CV 16.9 % (10.5-14.5); WBC 4.5 thou/uL (4.0-11.0)
[2020-11-22 04:00] VITALS: BP 124/45
[2020-11-22 04:11] LABS: ALBUMIN 2.7 g/dL (3.4-5.0); CREATININE 0.8 mg/dL (0.6-1.3); POTASSIUM 3.8 mmol/L (3.5-5.1); TOTAL BILIRUBIN 0.7 mg/dL (<0.1-1.0); TOTAL PROTEIN 5.7 g/dL (6.4-8.2)
--- NOTE | 2020-11-22 07:41 | NUR ---
ASSUMED CARE OF PT AFTER REPORT AT 1930. PT A&OX4. VSS. PHYSICAL ASSESSMENT COMPLETED AND CHARTED. PT ON O2 AT 2L NC. PT TRACING SR/PVC ON TELE. PT UP WITH 1 ASSIST TO BSC. PT DENIES ANY PAIN. PT INSTRUCTED ON NPO POST MIDNIGHT FOR EGD. COMMUNICATES UNDERSTANDING. FALL PRECAUTIONS IN PLACE. CALL LIGHT WITHIN REACH.
[2020-11-22 09:00] VITALS: BP 120/47
[2020-11-22 12:00] VITALS: BP 115/41
[2020-11-22 16:00] VITALS: BP 117/43
--- NOTE | 2020-11-22 18:50 | NUR ---
PT. AOX4, VSS. POST EGD PRESENTED TO FLOOR WITH AFIB AND RVR, MEDS ADMINISTERED AND PT. MONITORED CLOSELY UNTIL 1700. HR IN 60-70, BP WAS UNSTABLE IN THE BEGINNING BUT STABILIZED IN 110-120S SBP., ASYMPTOMATIC. PT. IN BED, IN STABLE CONDITION AT THIS TIME.
[2020-11-22 20:15] VITALS: BP 100/40
[2020-11-23] VITALS: BP 114/34
[2020-11-23 04:00] VITALS: BP 97/35
--- NOTE | 2020-11-23 04:27 | NUR ---
ASSUMED CARE AT 1915H, ON NC AT 4LPM AND TOLERATED. ALERT AND ORIENTED. SR PER MACHINE ADJUSTER LEADER AND WITH SOFT BP. FOR GASTRIC EMPTING STUDY TODAY. NO DISTRESS NOTED. CONTINUE MONITORING AND TOWARDS GOALS.
[2020-11-23 04:29] LABS: HEMATOCRIT 28.8 % (37.0-47.0); HEMOGLOBIN 9.9 gm/dL (12.0-15.0); MCH 39.9 pg (26.0-34.0); MCHC 34.3 g/dL (28.0-37.0); MCV 116.6 fL (80.0-100.0); MPV 9.9 fl. (7.2-11.1); RBC 2.47 mil/uL (4.20-5.00); RDW-CV 16.8 % (10.5-14.5); WBC 5.3 thou/uL (4.0-11.0)
[2020-11-23 04:44] LABS: CALCIUM 8.1 mg/dL (8.5-10.1); CREATININE 0.9 mg/dL (0.6-1.3); MAGNESIUM 1.9 mg/dL (1.8-2.4)
[2020-11-23 08:00] VITALS: BP 117/42
--- NOTE | 2020-11-23 13:03 | NUR ---
M/s status. Pt have a GET today, GI following. Therapies to assess. Anticipate dc soon, back [facility]. [facility]. Following.
--- NOTE | 2020-11-23 13:46 | 2DMMODE ---
[place] [address] 2 D/M-MODE ECHOCARDIOGRAM Name: AFSHIN GARCES Room: [address] IN [facility]#: [id number] Admission: 11/20/20 Attend Phys: Lukasz Esteban, Discharge: Date of : 31 Date of Service: 11/23/20 1346 Report #: [id number] THIS REPORT FOR: cc: Mihaela Saavedra,Mihaela Pinto,Raimundo Harvey MD [facility] ~ APPROVED REPORT Study performed: 11/23/2020 11:07:21 EXAM: Comprehensive 2D, Doppler, and color-flow Echocardiogram Patient Location: In-Patient Room #: [facility] Status: routine BSA: 1.92 HR: 72 bpm BP: 117/42 mmHg Rhythm: NSR Other Information Study Quality: Good Indications Atrial Fibrillation 2D Dimensions IVSd: 9.30 (7-11mm) LVOT Diam: 19.52 (18-24mm) LVDd: 56.19 mm PWd: 8.83 (7-11mm) Ascending Ao: 32.08 (22-36mm) LVDs: 37.74 (25-40mm) Aortic Root: 30.31 mm Volumes Left Atrial Volume (Systole) LA ESV Index: 23.30 mL/m2 Aortic Valve AoV Peak Vikram.: 1.89 m/s AO Peak Gr.: 14.26 mmHg LVOT Max P.46 mmHg AO Mean Gr.: 7.58 mmHg LVOT Mean P.67 mmHg LVOT Max V: 1.27 m/s AO V2 VTI: 34.38 cm LVOT Mean V: 0.73 m/s ARACELI (VTI): 1.84 cm2 LVOT V1 VTI: 21.08 [place] [address] 2 D/M-MODE ECHOCARDIOGRAM Name: DEZAFSHIN SORENSEN Room: [address] IN ..#: [id number] Admission: 11/20/20 Attend Phys: Lukasz Esteban, Discharge: Date of : 31 Date of Service: 11/23/20 1346 Report #: [id number] Mitral Valve E/A Ratio: 1.03 MV Decel. Time: 253.32 ms MV E Max Vikram.: 0.81 m/s MV PHT: 73.46 ms MVA (PHT): 2.99 cm2 TDI E/Lateral E': 16.20 E/Medial E': 8.10 Medial E' Vikram.: 0.10 m/s Lateral E' Vikram.: 0.05 m/s Pulmonary Valve PV Peak Vikram.: 1.31 m/s PV Peak Gr.: 6.91 mmHg Tricuspid Valve RAP Estimate: 5.00 mmHg TR Peak Gr.: 31.61 mmHg RVSP: 36.00 mmHg PA Pressure: 36.00 mmHg Left Ventricle The left ventricle is normal size. There is normal LV segmental wall motion. There is normal left ventricular wall thickness. Left ventricular systolic function is normal. The left ventricular ejection fraction is within the normal range. LVEF is 60%. Right Ventricle The right ventricle is normal size. The right ventricular systolic function is normal. Atria The left atrium size is normal. The right atrium size is normal. Aortic Valve Mild aortic valve sclerosis. No aortic regurgitation is present. No hemodynamically significant valvular aortic stenosis. Mitral Valve The mitral valve is normal in structure. Trace mitral regurgitation. No evidence of mitral valve stenosis. Tricuspid Valve The tricuspid valve is normal in structure. Mild tricuspid regurgitation. [place] [address] 2 D/M-MODE ECHOCARDIOGRAM Name: AFSHIN GARCES Room: [address]#: [id number] Admission: 11/20/20 Attend Phys: Lukasz Esteban, Discharge: Date of : 31 Date of Service: 11/23/20 1346 Report #: [id number] Pulmonic Valve The pulmonary valve is normal in structure. There is no pulmonic valvular regurgitation. Great Vessels The aortic root is normal in size. IVC is normal in size and collapses >50% with inspiration. Pericardium There is no pericardial effusion. <Conclusion> The left ventricle is normal size. There is normal left ventricular wall thickness. Left ventricular systolic function is normal. The left ventricular ejection fraction is within the normal range. LVEF is 60%. The right ventricle is normal size. The left atrium size is normal. Mild aortic valve sclerosis. No aortic regurgitation is present. No hemodynamically significant valvular aortic stenosis. The mitral valve is normal in structure. Trace mitral regurgitation. The tricuspid valve is normal in structure. Mild tricuspid regurgitation. Mild pulmonary hypertension. IVC is normal in size and collapses >50% with inspiration. There is no pericardial effusion. There is normal LV segmental wall motion. <ELECTRONICALLY SIGNED> By: Raimundo Dumont MD, FACC 11/23/20 1346 1346 1346 Raimundo Dumont MD, FACC /INF
--- NOTE | 2020-11-23 14:22 | NUR ---
[facility] Nurse Transition Navigator Assessment Note: Met with patient after referred to see by the Tony MOORE. Patient is in the midst of more testing--today Gastric Emptying, and is receiving blood transfusion. Patient able to discuss her condition and the fact that she went into AF after a procedure and the other things being done. Patient states she has a Rolater and a walker and a cane. She agrees she could benefit from HH and states she will be Homebound at [place] from hospital. Pt. has Dr. Mihaela Saavedra for her PCP. Discussed need for nurse to check her meds and make sure all changes are correct when she gets home. Referral sent and will plan to stop in and see her again tomorrow.
[2020-11-23 15:15] VITALS: BP 110/31
[2020-11-23 16:00] VITALS: BP 123/48
--- NOTE | 2020-11-23 17:30 | NUR ---
Pt completed gastric emptying today. Report called to HANNAH Carr on JSSI, pt transferred per WC.
--- NOTE | 2020-11-23 17:40 | NUR ---
PATIENT ARRIVED TO UNIT A TRANSFER FROM [facility] AT APPROX. 1715. PATIENT IS CURRENTLY EATING DINNER, IS A&OX4, PLEASANT AND COOPERATIVE WITH CARES. PATIENT DENIES ANY PAIN OR RECTAL BLEEDING SINCE BEING IN THE HOSPITAL. PATIENT CURRENTLY ON 2L O2 (DOES NOT WEAR AT HOME) AND IS RECEIVING BREATHING TREATMENTS. IV ACCESS IN LEFT FOREARM PATENT AND IS SALINE LOCKED. CALL LIGHT AND FREQUENTLY USED ITEMS WITHIN REACH.
[2020-11-23 20:00] VITALS: BP 112/50
--- NOTE | 2020-11-24 04:53 | NUR ---
PT AO X4 LYING IN BED AT TIME OF ASSESSMENT, EXTREMELY HARD OF HEARING. LUNGS CTA/DIMINISHED, DENIES COUGH AT THIS TIME. PT DBP LOW 112/50 WITH FATIGUE. PT AMBULATED TO TOILET WITH ASSIST X1 WITH LITTLE TROUBLE. PT ON 2L OXYGEN BUT SATS WERE LOW AT 88-90 SO INCREASED TO 3L TO OBTAIN CONSISTANT 90% READING. PT HAS 1+ EDEMA IN BLE.
[2020-11-24 06:25] LABS: ABSOLUTE LYMPHOCYTES 0.5 thou/uL (0.8-5.3); ABSOLUTE MONOCYTES 1.2 thou/uL (0.0-1.2); ABSOLUTE NEUTROPHILS 2.4 thou/uL (1.6-8.1); HEMATOCRIT 29.1 % (37.0-47.0); HEMOGLOBIN 9.7 gm/dL (12.0-15.0); LYMPHOCYTES 11.4 %; MCHC 33.4 g/dL (28.0-37.0); MCV 116.6 fL (80.0-100.0); MPV 10.2 fl. (7.2-11.1); NUCLEATED RBCS 0 /100WBC; PLATELET COUNT* 103 thou/uL (150-400); POLYS 57.6 %; RBC 2.49 mil/uL (4.20-5.00); WBC 4.1 thou/uL (4.0-11.0)
[2020-11-24 06:55] LABS: ALBUMIN 2.4 g/dL (3.4-5.0); CALCIUM 8.4 mg/dL (8.5-10.1); CREATININE 0.9 mg/dL (0.6-1.3); MAGNESIUM 1.9 mg/dL (1.8-2.4); POTASSIUM 3.7 mmol/L (3.5-5.1); TOTAL BILIRUBIN 0.5 mg/dL (<0.1-1.0); TOTAL PROTEIN 5.4 g/dL (6.4-8.2)
[2020-11-24 07:40] VITALS: BP 114/47
--- NOTE | 2020-11-24 14:04 | NUR ---
HAD GET YESTERDAY AND IT SHOWED NORMAL GASTRIC EMPTYING TEST. TO HAVE CXR TODAY. STILL ON O2 AT 3L/NC . POSSIBLITY OF DISCHARGE TOMRROW.
--- NOTE | 2020-11-24 14:25 | NUR ---
[facility] nurse transition navigator follow up note: Patient had normal GET. Did have another transfusion today. NO dc date. Does plan to go home on HH.
[2020-11-24 16:00] VITALS: BP 112/38
--- NOTE | 2020-11-24 16:49 | NUR ---
PT A&OX4 VSS. PT NUIQSUT. PT O2 TITRATED DOWN BY RESPIRATORY THERAPY THIS SHIFT. PT UP ASSIST X1 W/WALKER. SOME TRACE EDMA OBSERVED TO BLE UPON ASSESSMENT. PT REMAINS CONTINENT OF B/B. IV TO LFA PATENT, DRESSING C/D/I. PT RESTS IKN ROOM WITH CALL LIGHT IN REACH, WILL CONTINUE TO MONITOR
[2020-11-24 20:00] VITALS: BP 101/37
[2020-11-25 03:49] LABS: ALBUMIN 2.6 g/dL (3.4-5.0); CALCIUM 8.2 mg/dL (8.5-10.1); CREATININE 0.8 mg/dL (0.6-1.3); MAGNESIUM 1.8 mg/dL (1.8-2.4); POTASSIUM 3.7 mmol/L (3.5-5.1); TOTAL BILIRUBIN 0.6 mg/dL (<0.1-1.0); TOTAL PROTEIN 5.5 g/dL (6.4-8.2)
[2020-11-25 03:55] LABS: HEMOGLOBIN 9.8 gm/dL (12.0-15.0); MCH 38.7 pg (26.0-34.0); MCHC 33.8 g/dL (28.0-37.0); MCV 114.6 fL (80.0-100.0); MPV 10.3 fl. (7.2-11.1); RBC 2.53 mil/uL (4.20-5.00); RDW-CV 16.4 % (10.5-14.5); WBC 4.3 thou/uL (4.0-11.0)
--- NOTE | 2020-11-25 05:17 | NUR ---
PT IS AO X4 SITTING BEDSIDE FOR ASSESSMENT THIS PM. SHE STATES SHE IS HUNGRY AND DIDNT EAT MUCH OF HER DINNER. SHE ATE A SANDWICH TRAY. LUNGS CTA/DIM , HER SAT WAS AGAIN GETTING DOWN TO 88% RANGE AND RT BUMPED PT TO 2L NC ONCE AGAIN. SHE HAS BEEN AMBULATING TO THE TOILET AND IS DOING WELL WITH STANDBY ASSIST. SHE HAS NOT HAD A BM IN 4 DAYS OR SO AND SHE WAS GIVEN MOM LAST PM TO HELP WITH THIS.
[2020-11-25 08:20] VITALS: BP 121/46
--- NOTE | 2020-11-25 12:00 | NUR ---
DISCUSSED IN PRIME TIME ROUNDS. HAS DEVELOPED PNA ON CXR. WILL BE HERE ANOTHER 1-2 DAYS. PLAN IS TO GO BACK TO HER INDEPENDENT LIVING APT.WITH ALYSE.
--- NOTE | 2020-11-25 13:08 | PATH ---
[address] [address] PATHOLOGY RPT PROCEDURE Name: AFSHIN GARCES Room: [address] IN ..#: [id number] Admission: 11/20/20 Date of : 31 Discharge: Report #: [id number] Path Case #: [id number] [facility] Accession Number: [id number] . 01 Material submitted: . stomach - GASTRIC BIOPSY . 01 Clinical history: . EGD . 02 Diagnosis: Gastric biopsies: - Mild nonspecific chronic gastritis, negative for Helicobacter pylori organisms and dysplasia. (SABINE:pit 11/25/2020) . Special stain H. pylori immuno QTP 11/25/2020 1155 Local . 02 Electronically signed: . Antoni Perdomo MD, Pathologist NPI- [id number] . 01 Gross description: . The specimen is received in formalin, labeled "Nito Afshin", "gastric biopsies rule out gastritis". Received are multiple segments of pale campbell tissue ranging in size from 0.1 cm to 0.3 cm. The specimen is entirely submitted in cassette A1.(SNA; 11/24/2020) JAYJAY/JITENDRA 11/24/2020 0952 Local . 02 Pathologist provided ICD-10: K29.50 . 02 CPT . 845961, [id number] Specimen Comment: A courtesy copy of this report has been sent to [phone] Specimen Comment: [phone], Specimen Comment: Report sent to ,DR DOBSON / DR HENAO Performed at: [address], [place] [id number] MD Hubert Gurerero MD Phone: [phone] Performed at: 02 [facility] [address], [place], [place] [id number] MD Antoni Perdomo MD Phone: [phone]
--- NOTE | 2020-11-25 20:00 | NUR ---
Pt remained A&O x4 for entire shift. Vital signs stable. Pt pleasant with staff. Pt denies any pain, just "lack of appetite". Meds given per OCT. Recliner placed in room this afternoon so pt can sit in it for meals. Bed in low position, call light within reach.
[2020-11-25 21:50] VITALS: BP 137/44
[2020-11-26 05:16] LABS: HEMATOCRIT 29.1 % (37.0-47.0); HEMOGLOBIN 9.7 gm/dL (12.0-15.0); MCH 38.4 pg (26.0-34.0); MCHC 33.4 g/dL (28.0-37.0); MCV 114.9 fL (80.0-100.0); MPV 10.2 fl. (7.2-11.1); RBC 2.54 mil/uL (4.20-5.00); RDW-CV 16.8 % (10.5-14.5)
[2020-11-26 05:27] LABS: ALBUMIN 2.5 g/dL (3.4-5.0); CREATININE 0.8 mg/dL (0.6-1.3); MAGNESIUM 1.8 mg/dL (1.8-2.4); POTASSIUM 3.8 mmol/L (3.5-5.1); TOTAL BILIRUBIN 0.6 mg/dL (<0.1-1.0); TOTAL PROTEIN 5.5 g/dL (6.4-8.2)
--- NOTE | 2020-11-26 06:46 | NUR ---
PATIENT HAS SLEPT WELL THROUGHOUT MOST OF THE NIGHT. 02 INCREASED TO 3L D/T DECREASED SPO2. VSS ON 3L. PATIENT UP WITH SBA TO THE BATHROOM. MEDICATIONS GIVEN ORDERED AND CHARTED. BM X 1-NO BLOOD NOTED IN STOOL. IV IN LEFT FOREARM-SL. FALL PRECAUTIONS IN PLACE AND HOURLY ROUNDS MADE. WILL CONTINUE WITH PLAN OF CARE AND NURSING TO MONITOR.
[2020-11-26 07:35] VITALS: BP 115/40
[2020-11-26 07:55] VITALS: BP 115/40
[2020-11-26 16:00] VITALS: BP 100/41
--- NOTE | 2020-11-26 16:48 | NUR ---
PT.STILL WANTS TO RETURN TO HER APT.AT DIS[place]ARE. REFUSING SNF. PLANS FOR [facility] AT DISCHARGE. P.T NEEDS TO SEE PT.IN AM, THEY HAVE NOT SEEN IN SEVERAL DAYS.
--- NOTE | 2020-11-26 19:18 | NUR ---
PATIENT RESTING IN BED. PATIENT IS UP WITH ASSIST OF ONE. PATIENT WAS UP TO CHAIR THIS AM. PATIENT HAS POOR APPETITE AND HAD COMPLAINTS OF NAUSEA THIS AFTERNOON, ZOFRAN GIVEN WITH RELIEF. PATIENT DENIES ANY NEEDS AT THIS TIME. CALL LIGHT WITHIN REACH. WILL CONTINUE TO MONITOR.
[2020-11-26 20:50] VITALS: BP 99/30
[2020-11-26 23:46] VITALS: BP 117/41
[2020-11-27 04:43] LABS: HEMATOCRIT 29.2 % (37.0-47.0); HEMOGLOBIN 9.8 gm/dL (12.0-15.0); MCH 38.5 pg (26.0-34.0); MCHC 33.6 g/dL (28.0-37.0); MCV 114.6 fL (80.0-100.0); MPV 10.5 fl. (7.2-11.1); RBC 2.54 mil/uL (4.20-5.00); RDW-CV 16.5 % (10.5-14.5); WBC 6.1 thou/uL (4.0-11.0)
[2020-11-27 05:12] LABS: CALCIUM 8.3 mg/dL (8.5-10.1); MAGNESIUM 1.9 mg/dL (1.8-2.4); POTASSIUM 4.3 mmol/L (3.5-5.1)
--- NOTE | 2020-11-27 07:35 | NUR ---
PATIENT HAS RESTED WELL THROUGHOUT THE NIGHT. VSS ON 2L 02 VIA NASAL CANNULA. MEDICATIONS GIVEN ORDERED AND CHARTED. IV IN LEFT FOREARM-SL. PATIENT UP WITH ASSIST X 1 WITH WALKER TO THE BATHROOM. FALL PRECAUTIONS IN PLACE AND HOURLY ROUNDS MADE. WILL CONTINUE WITH PLAN OF CARE AND NURSING TO MONITOR.
[2020-11-27 08:15] VITALS: BP 114/90
--- NOTE | 2020-11-27 12:20 | NUR ---
CM DISCUSSED SNF WITH PT D/T WEAKNESS. PT AGREEABLE TO SNF. WOULD LIKE TO TRY [facility]. CM FAXED REFERRAL TO [phone].
--- NOTE | 2020-11-27 13:07 | NUR ---
[facility] Nurse Transition Navigator Note: Checked on patient again who has already decided she would us us for her HH. . is now considering dc in the next day or two. Patient very weak and did say whatever she needed she wanted to get as she was really tired and could not do very well. is considering SNF for rehab as this seems the best choice followed by HH. Confirmed her pcp and demographics. Talked with TERESA Burns for this patient today. Pt. wants to go to [facility] if a bed available.
--- NOTE | 2020-11-27 14:22 | CON ---
[address] [address] CONSULTATION Name: AFSHIN GARCES Room: [address] IN .R.#: [id number] Admission: 11/20/20 Attend Phys: Lukasz Esteban MD Discharge: Date of : 31 Report #: [id number] THIS REPORT FOR: cc: Mihaela Saavedra Linda J. DO Namin, Farid M. MD ~ DATE OF SERVICE: 11/21/2020 REQUESTING PHYSICIAN: Dr. Lukasz Esteban. HISTORY OF PRESENT ILLNESS: This is an 89-year-old female who takes Eliquis for AFib. The patient reports that since 10/30 when she dined in [employer] [place] [employer], shortly after that she started feeling queasy and started having abdominal pain and gastrointestinal symptoms. She reports that she is not able to eat well and reports some dyspepsia type symptoms. She also has anorexia. Since hospitalization, she also has had some rectal bleeding, when she was on Eliquis. Since then, she has no longer had rectal bleeding. She denies any constipation, change in bowel habits or lower abdominal pain. She admits that she never has had a colonoscopy. PAST MEDICAL HISTORY: Significant for history of AFib, hypertension, hypothyroidism, hyperlipidemia. ALLERGIES: No known drug allergy. MEDICATIONS: Please refer to MAR. SOCIAL HISTORY: The patient lives in elderly residence alone, but visits her granddaughter frequently. She denies tobacco or alcohol use. FAMILY HISTORY: Noncontributory. PHYSICAL EXAMINATION: VITAL SIGNS: Reveals blood pressure of 118/45, pulse of 74, temperature 98.1, respiration 18. LUNGS: Clear. CARDIOVASCULAR: Regular. ABDOMEN: Soft, nontender, nondistended. Bowel sounds are positive. NEUROLOGIC: The patient is alert and oriented x 3. There is no focal neurologic deficit. LABORATORY DATA: Reveal sodium of 139, potassium 4.0, BUN is 13, creatinine 0.8, glucose is 100. Liver function tests are [place] [address] CONSULTATION Name: AFSHIN GARCES Room: [address] IN [facility].#: [id number] Admission: 11/20/20 Attend Phys: Lukasz Esteban MD Discharge: Date of : 31 Report #: [id number] Albumin is 3.2. Iron study was done, which reveals iron of 39, saturation is 22, total iron binding capacity is 176, ferritin 560. Folic acid is 7.2. INR is 1.3. WBC is 4.6 with hemoglobin of 10.7 and platelet count of 139. IMAGING: RBC tagged scan was obtained on admission, which was negative for GI bleed. ASSESSMENT AND PLAN: The patient with history of atrial fibrillation, who takes Eliquis and has had bright red blood per rectum, but since they stopped the Eliquis, this has been self-limiting. The patient does not want to have colonoscopies. She reports anorexia, dyspepsia, poor appetite and she is anemic. We will consider upper endoscopy to further evaluate this. She also has very low folic acid. We will replace her folic acid. The patient also appears to have urinary tract infection for which she is being treated with Rocephin. We will make further recommendation based on endoscopic finding. <ELECTRONICALLY SIGNED> By: Jemima Nicole MD 11/27/20 1422 0955 [id number] Nicole MD /nt
[2020-11-27 16:00] VITALS: BP 93/34
--- NOTE | 2020-11-27 18:11 | NUR ---
PATIENT ALERT AND ORIENTED X 2-3. FORGETFUL AND CONFUSED AT TIMES. UP WITH ASSISTANCE TO THE BATHROOM WITH GAIT BELT AND WALKER. IV PATENT AND SALINE LOCKED. DENIES PAIN AN NAUSEA AT THIS TIME. TURNED AND REPOSITIONED EVERY TWO HOURS. FALL PRECAUTIONS IN PLACE AND BED ALARM ON. CALL LIGHT WITHIN REACH.
[2020-11-27 19:50] VITALS: BP 100/35
[2020-11-28 00:21] VITALS: BP 99/40
--- NOTE | 2020-11-28 04:47 | NUR ---
PT A&O X 3, ON 3L O2. BP SOFT. NO C/O PAIN OR N/V. UP TO THE BR WITH SBA. CALL LIGHT WITHIN REACH. WILL CONTINUE TO MONITOR.
[2020-11-28 08:10] VITALS: BP 96/42
--- NOTE | 2020-11-28 16:26 | NUR ---
PATIENT UP TO CHAIR THIS AM. AMBULATING TO BSC AND BATHROOM WITH ASSISTANCE; GAIT BELT AND WALKER. [address] IV ABX INFUSED ORDERED THIS SHIFT. PATIENT C/O NAUSEA AFTER TAKING MEDICATIONS, PRN ZOFRAN GIVEN ORDERED. PATIENT C/O RESTLESS LEG THIS AFTERNOON, ONE TIME DOSE ORDERED AND GIVEN. PATIENT HAS VERY POOR APPETITE, DID DRINK SOME ENSURE THIS AM BUT REFUSED LUNCH. AWAITING NEXT VOID TO SEND UA ORDERED.
[2020-11-28 16:55] VITALS: BP 88/34
[2020-11-28 18:52] LABS: URINE BILIRUBIN NEGATIVE (Negative); URINE BLOOD NEGATIVE (Negative); URINE CLARITY CLEAR; URINE COLOR YELLOW; URINE GLUCOSE-RANDOM NEGATIVE (Negative); URINE KETONES NEGATIVE (Negative); URINE LEUKOCYTES-REFLEX TRACE (Negative); URINE NITRITE-REFLEX NEGATIVE (Negative); URINE PROTEIN NEGATIVE (Negative); URINE SPECIFIC GRAVITY 1.025 (1.005-1.030); URINE UROBILINOGEN 0.2 E.U./dl (0.2-1.0)
[2020-11-28 19:01] LABS: SQUAMOUS >10 Many /LPF (0-3)
[2020-11-28 19:02] LABS: BACTERIA-REFLEX 1-9 Few /HPF (None Seen)
[2020-11-28 19:04] LABS: CRYSTALS None Seen /LPF (None Seen); URINE RBC 0-2 Rare /HPF (0-2); URINE WBC-REFLEX >25 Many /HPF (0-5); YEAST-REFLEX Present (None Seen)
[2020-11-28 19:05] LABS: FINE GRANULAR CASTS 0-3 Few /LPF (None Seen); HYALINE CASTS 0-3 Few /LPF (None Seen); MUCUS 0-3 Light strn/LPF (None Seen)
[2020-11-28 20:00] VITALS: BP 107/42
[2020-11-29 04:41] LABS: ALBUMIN 2.3 g/dL (3.4-5.0); CALCIUM 8.5 mg/dL (8.5-10.1); CREATININE 1.1 mg/dL (0.6-1.3); POTASSIUM 4.3 mmol/L (3.5-5.1); TOTAL BILIRUBIN 0.5 mg/dL (<0.1-1.0); TOTAL PROTEIN 5.3 g/dL (6.4-8.2)
--- NOTE | 2020-11-29 05:02 | NUR ---
PT A&O, ON 3L. BP SOFT. EDUCATION GIVEN ON HYDRATION. UP TO THE BSC WITH SBA. DENIED PAIN, N/V. PT SLEPT MOST OF THE NIGHT. CALL LIGHT WITHIN REACH. WILL CONTINUE TO MONITOR.
[2020-11-29 06:53] LABS: HEMOGLOBIN ND gm/dL (12.0-15.0); RBC ND mil/uL (4.20-5.00); WBC ND thou/uL (4.0-11.0)
[2020-11-29 06:54] LABS: HEMATOCRIT ND % (37.0-47.0); MCH ND pg (26.0-34.0); MCV ND fL (80.0-100.0)
[2020-11-29 06:55] LABS: MCHC ND g/dL (28.0-37.0); MPV ND fl. (7.2-11.1); PLATELET COUNT* ND thou/uL (150-400); RDW-CV ND % (10.5-14.5)
[2020-11-29 06:56] LABS: NUCLEATED RBCS ND /100WBC
[2020-11-29 07:03] LABS: HEMATOCRIT 26.8 % (37.0-47.0); MCH 38.2 pg (26.0-34.0); MCHC 33.4 g/dL (28.0-37.0); MCV 114.4 fL (80.0-100.0); MPV 10.7 fl. (7.2-11.1); NUCLEATED RBCS 0 /100WBC; PLATELET COUNT* 132 thou/uL (150-400); RBC 2.35 mil/uL (4.20-5.00); RDW-CV 16.4 % (10.5-14.5); WBC 5.2 thou/uL (4.0-11.0)
[2020-11-29 07:30] LABS: ABSOLUTE LYMPHOCYTES 0.8 thou/uL (0.8-5.3); ABSOLUTE MONOCYTES 1.2 thou/uL (0.0-1.2); ABSOLUTE NEUTROPHILS 3.2 thou/uL (1.6-8.1); PLATELET ESTIMATE DECREASED
[2020-11-29 07:31] LABS: ANISOCYTOSIS 1+; POIKILOCYTOSIS 1+
[2020-11-29 11:57] VITALS: BP 103/40
[2020-11-29 16:23] VITALS: BP 111/42
--- NOTE | 2020-11-29 18:41 | NUR ---
PT A&Ox4, FORGETFUL. HARD OF HEARING. DEPRESSED MODE. COULD NOT GET PT TO EAT MORE THAN A COUPLE BITES FOR EACH MEAL. ENCOURAGED TO DRINK ENSURE. UP WITH 1 MOD ASSIST. FALL PRECAUTIONS IN PLACE. CALL LIGHT WITHIN REACH. WILL CONTINUE TO MONITOR.
[2020-11-29 21:00] VITALS: BP 102/38
[2020-11-30 04:14] LABS: HEMATOCRIT 26.2 % (37.0-47.0); HEMOGLOBIN 8.8 gm/dL (12.0-15.0); MCHC 33.5 g/dL (28.0-37.0); MCV 113.5 fL (80.0-100.0); MPV 10.7 fl. (7.2-11.1); NUCLEATED RBCS 0 /100WBC; PLATELET COUNT* 134 thou/uL (150-400); RBC 2.31 mil/uL (4.20-5.00); RDW-CV 16.2 % (10.5-14.5); WBC 5.3 thou/uL (4.0-11.0)
[2020-11-30 04:16] LABS: ALBUMIN 2.4 g/dL (3.4-5.0); CALCIUM 7.9 mg/dL (8.5-10.1); POTASSIUM 4.2 mmol/L (3.5-5.1); TOTAL BILIRUBIN 0.5 mg/dL (<0.1-1.0); TOTAL PROTEIN 5.1 g/dL (6.4-8.2)
--- NOTE | 2020-11-30 05:26 | NUR ---
PATIENT ALERT AND ORIENTED X 3. VERY, VERY [place]. DIFFICULT TO COMMUNICATE WITH PATIENT. FALL PRECAUTIONS IN PLACE. PATIENT IS USING CALL LIGHT FOR ASSIST APPROPRIATELY. UP TO BSC WITH MIN/MOD ASSIST OF ONE, GAIT BELT AND WALKER. CONSUMED 1/3 SERVING ENSURE AT HS WITH PILLS AND DRINKS OF WATER OFFERED THROUGHOUT THE NIGHT. PATIENT APPEARS VERY FATIGUED AND SAD. BP REMAINS SOFT. MEDS PER ORDER WITH O2 AND RT TREATMENTS PROVIDED. CONTINUE TO MONITOR.
[2020-11-30 06:57] LABS: ABSOLUTE EOSINOPHILS 0.2 thou/uL (0.0-0.7); ABSOLUTE LYMPHOCYTES 0.7 thou/uL (0.8-5.3); ABSOLUTE MONOCYTES 1.3 thou/uL (0.0-1.2); ATYPICAL LYMPHS 2 %; ATYPICAL MONONUCLEARS 6 %; METAMYELOCYTES 2 %; MYELOCYTES 1 %
[2020-11-30 08:11] VITALS: BP 90/34
[2020-11-30 08:53] VITALS: BP 90/34
--- NOTE | 2020-11-30 13:14 | NUR ---
THIS NURSE AGREES WITH ASSESSMENT
--- NOTE | 2020-11-30 13:36 | NUR ---
Anticipate dc tomorrow. TERESA spoke with Keara at [facility], they are able to accept Pt for skilled and will initiate insurance auth. CM to fax updated therapy notes once available, CM asked ARU liaison, to have both PT/OT see Pt today. Following.
--- NOTE | 2020-11-30 16:41 | NUR ---
PATIENT RESTING IN BED. TOLERATING 3L NASAL CANNULA. IV TO LEFT FOREARM, PATENT, SALINE LOCKED. DRESSING C/D/I. LUNGS DIMINISHED BILATERALLY. +1 EDEMA TO BILATERAL LOWER EXTREMETIES. NO QUESTIONS OR CONCERNS VOICED. WILL CONTINUE TO MONITOR.
[2020-11-30 16:56] VITALS: BP 105/40
[2020-11-30 20:00] VITALS: BP 115/39
--- NOTE | 2020-12-01 04:28 | NUR ---
PT SLEPT MOST OF THE NIGHT. ON 2-3L BY NC. C/O RESTLESS LEG, MEDS GIVEN ORDERED. DENIED PAIN. UP TO BSC WITH 1-2 ASSIST. CALL LIGHT WITHIN REACH. WILL CONTINUE TO MONITOR.
[2020-12-01] MEDS ORDERED: VITAMINC500 PO (08:19)
[2020-12-01] MEDS ORDERED: SORINE 80 MG TA80 M1 PO (08:19)
[2020-12-01] MEDS ORDERED: MELATONIN5 M1 PO (08:19)
[2020-12-01] MEDS ORDERED: FOLIC ACID1 MG PO (08:19)
[2020-12-01 08:25] VITALS: BP 111/39
[2020-12-01] MEDS ORDERED: NEXIUM40 MG PO (09:24)
[2020-12-01] MEDS ORDERED: ZOLOFT25 MG PO (09:25)
--- NOTE | 2020-12-01 10:56 | NUR ---
THIS NURSE AGREES WITH ASSESSMENT
--- NOTE | 2020-12-01 12:13 | NUR ---
Faxed updated therapy notes to [facility], continue to await insurance auth. Pt medically stable to dc once insurance auth received.
[2020-12-01 15:33] VITALS: BP 96/38
[2020-12-01 20:42] VITALS: BP 116/45
--- NOTE | 2020-12-02 04:53 | NUR ---
PT WEAK, LOW ENERGY, SHE DID TAKE BEDTIME MEDS. SHE WAS VERY FLAT AFFECT, NOT WANTING TO SAY MUCH AT ALL. SHE DID NOT REPORT ANY PAIN OR DISCOMFORT. SHE DID RECEIVE BREATHING TREATMENTS SCHEDULED. ENCOURAGED HYDRATION. Q2 TURN. KEPT COMFORTABLE.
[2020-12-02 08:00] VITALS: BP 106/41
--- NOTE | 2020-12-02 10:17 | NUR ---
THIS NURSE AGREES WITH ASSESSMENT
--- NOTE | 2020-12-02 13:57 | NUR ---
Pt medically stable to dc, continue to await insurance auth for skilled.
[2020-12-02 15:32] VITALS: BP 96/34
--- NOTE | 2020-12-02 16:49 | NUR ---
PATIENT RESTING COMFORTABLY. DECREASE INTAKE. LUNG SOUNDS DIMINISHED BILATERALLY. TOLERATING 2. NASAL CANNULA. PATIENT IN BETTER MOOD TODAY. ROPINIROLE GIVEN X1 PRN, FOR RESTLESS LEGS. ALL QUESTIONS AND CONCERNS ADDRESSED. WILL CONTINUE TO MONITOR.
[2020-12-02 20:00] VITALS: BP 106/41
--- NOTE | 2020-12-03 04:35 | NUR ---
PT A&O, MORE TALKATIVE. VSS ON 2L. MEDS GIVEN ORDERED. DENIED PAIN OR N/V. PT SLEPT MOST OF THE NIGHT. CALL LIGHT WITHIN REACH. WILL CONTINUE TO MONITOR.
[2020-12-03 08:30] VITALS: BP 90/40
--- NOTE | 2020-12-03 11:44 | NUR ---
Continue to await insurance auth for skilled at [facility]. Anticipate to hear back today.
[2020-12-03 15:25] VITALS: BP 106/41
--- NOTE | 2020-12-03 18:47 | NUR ---
PATIENT RESTING IN BED. PATIENT DENIES ANY PAIN. PATIENT IS UP WITH ASSIST OF ONE TO CHAIR. PATIENT HAD COMPLAINTS OF NAUSEA THIS AM. PATIENT HAS POOR APPETITE BUT IS DRINKING ENSURE THIS EVENING. PATIENT WAS ABLE TO SLEEP THIS AFTERNOON WITH SCD'S ON TO HELP RESTLESS LEGS. PATIENT DENIES ANY NEEDS AT THIS TIME. CALL LIGHT WITHIN REACH.
[2020-12-03 20:00] VITALS: BP 119/54
--- NOTE | 2020-12-04 06:43 | NUR ---
PT SLEPT WELL OVERNIGHT, ZOFRAN GIVEN FOR N/V AT START OF SHIFT. PT REQUESTING MILK OF MAG, NO BM OVERNIGHT. UP WITH ASSIST TO BSC OVERNIGHT. O2 4L SAT 93%, INCREASED OVERNIGHT. SCDS ON. [place]. ABLE TO USE CALL LITE AND MAKE NEEDS KNOWN. POSSIBLE DC TO SNF TODAY.
[2020-12-04 07:50] VITALS: BP 114/46
--- NOTE | 2020-12-04 08:02 | NUR ---
Insurance auth received. Pt to dc to [facility] today, facility to [facility]le [facility] at 10am. Faxed dc orders. Chart copied. Nurse report is [phone]. Updated Pt's family, Ksenia.
--- NOTE | 2020-12-04 10:10 | NUR ---
PATIENT DISCHARGED TO [facility]. FACILITY CALLED FOUR TIMES FOR REPORT AND NO ANSWER AT NURSES DESK. TRIED TO LEAVE MESSAGE WITH SUPERVISOR [employer]ST[employer]ARD BUT WOULD NOT TAKE MESSAGE AND TRANSFERED TO NURSES DESK AGAIN. PATIENT BELONGINGS PACKED BY DAUGHTER. IV REMOVED. NO CLOTHING, LEFT IN GOWN AND DAUGHTER TO BRING CLOTHES TO FACILTY. PATIENT DENIES ANY FURTHER NEEDS AT THIS TIME. LEFT BY WHEELCHAIR VAN.
== END 2020-12-04 10:10 | DRG 368 ==
LOC: M.ERS 11:28 → M.ORTHSURG 12:35 → M.2W 12:35 → M.TBA-ER 12:35 → M.2W 17:38 → M.ORTHSURG 11-23 17:05
PROVIDERS: Emergency Medicine Emergency Medical Services; Internal Medicine; Internal Medicine Hematology & Oncology; ADMIT Internal Medicine; ATTEND Internal Medicine
PROC: 0DB68ZX Excision of Stomach, Via Natural or Artificial Opening Endoscopic, Diagnostic (ICD-10-PCS; principal; 2020-11-22)
DX: K20.91 Esophagitis, unspecified with bleeding (principal); J96.01 Acute respiratory failure with hypoxia; J15.6 Pneumonia due to other Gram-negative bacteria; D62 Acute posthemorrhagic anemia; D68.69 Other thrombophilia; D47.1 Chronic myeloproliferative disease; N39.0 Urinary tract infection, site not specified; K29.70 Gastritis, unspecified, without bleeding; Z20.822 Contact with and (suspected) exposure to COVID-19; I10 Essential (primary) hypertension; E78.5 Hyperlipidemia, unspecified; I48.91 Unspecified atrial fibrillation; E03.9 Hypothyroidism, unspecified; M25.319 Other instability, unspecified shoulder; G25.81 Restless legs syndrome; J44.9 Chronic obstructive pulmonary disease, unspecified; R53.81 Other malaise; B96.89 Other specified bacterial agents as the cause of diseases classified elsewhere; K44.9 Diaphragmatic hernia without obstruction or gangrene; K22.70 Barrett's esophagus without dysplasia; I48.0 Paroxysmal atrial fibrillation; D69.6 Thrombocytopenia, unspecified; R01.1 Cardiac murmur, unspecified; I34.0 Nonrheumatic mitral (valve) insufficiency; Z87.891 Personal history of nicotine dependence; Z79.899 Other long term (current) drug therapy

== ENCOUNTER 2021-01-04 17:16 | Emergency (ER) | payer MEDICARE ==
[~2021-01-04] VITALS: Ht 170.2 cm; Wt 68.0 kg
[~2021-01-04 17:16] MED LIST changes: +ASA81BEC PO; +FOLIC ACID1 MG PO; +KLOR-CON 10 ER10 MEQ PO; +MELATONIN5 M1 PO; +METOPROLOL SUCC25 M1 PO; +NEXIUM40 MG PO; +VITAMINC500 PO; +ZOLOFT25 MG PO
[2021-01-04] MEDS ORDERED: FUROSEMIDE 20 M20 MG PO (17:38)
[2021-01-04] MEDS ORDERED: PROTONIX40 M2 PO (17:39)
[2021-01-04] MEDS ORDERED: PROBIOTIC1 EAC7 (17:40)
[2021-01-04] MEDS ORDERED: SPIRONOLACTONE25 MG PO (17:42)
[2021-01-04] MEDS ORDERED: VANCOCIN 125 M125 M1 PO (17:42)
[2021-01-04 18:09] LABS: HEMOGLOBIN 9.8 gm/dL (12.0-15.0); MCH 31.5 pg (26.0-34.0); MCHC 30.7 g/dL (28.0-37.0); MCV 102.6 fL (80.0-100.0); MPV 8.2 fl. (7.2-11.1); NUCLEATED RBCS 0 /100WBC; PLATELET COUNT* 865 thou/uL (150-400); RBC 3.12 mil/uL (4.20-5.00); RDW-CV 21.2 % (10.5-14.5); WBC 26.2 thou/uL (4.0-11.0)
[2021-01-04 18:16] LABS: CALCIUM 7.7 mg/dL (8.5-10.1); CREATININE 0.9 mg/dL (0.6-1.3); POTASSIUM 4.3 mmol/L (3.5-5.1)
[2021-01-04 18:17] LABS: APTT 41.1 Seconds (25.0-31.3); INR 1.4
[2021-01-04 18:20] LABS: ALBUMIN 2.4 g/dL (3.4-5.0); TOTAL BILIRUBIN 0.6 mg/dL (<0.1-1.0); TOTAL PROTEIN 5.8 g/dL (6.4-8.2)
[2021-01-04 18:59] LABS: ABSOLUTE LYMPHOCYTES 3.7 thou/uL (0.8-5.3); ABSOLUTE MONOCYTES 1.6 thou/uL (0.0-1.2); PLATELET ESTIMATE INCREASED
[2021-01-04 19:01] LABS: ANISOCYTOSIS 2+
[2021-01-04 19:02] LABS: LARGE PLATELETS FEW
[2021-01-04 19:03] LABS: HYPOCHROMASIA Occasional; POLYCHROMASIA 1+
[2021-01-04 19:18] VITALS: BP 93/49
--- NOTE | 2021-01-05 09:38 | EKG ---
[place] [id number] ELECTROCARDIOGRAM REPORT Name: AFSHIN GARCES Room: [facility]#: [id number] Admission: 01/04/21 Attend Phys: Discharge: 01/04/21 Date of : 32 Date of Service: 01/04/21 175 Report #: [id number] THIS REPORT FOR: //name// [facility] ED Test Date: 2021-01-04 Test Time: 17:52:12 Pat Name: AFSHIN GARCES Department: Room: Gender: F Web Editor: QUETA : 1930 Requested By: Michel Freeman Order Number: [id number] MD: Antione Avalos Measurements Intervals [place] Rate: 84 P: 36 ID: [id number] QRS: -14 QRSD: 94 T: 142 QT: 386 QTc: 457 Interpretive Statements Sinus rhythm Abnormal R-wave progression, late transition Borderline abnrm T, anterolateral leads Compared to ECG 11/20/2020 11:43:26 No significant changes Electronically Signed On 01-05-2021 9:37:49 CDT by Antione Avalos [email or web address] <ELECTRONICALLY SIGNED> By: Antione Avalos MD, [facility] 01/05/21 0937 1752 1752 Antione Avalos MD, [facility] /EPI
== END 2021-01-04 19:20 | disposition short-term general hospital (02) ==
LOC: M.ERS 17:16
PROVIDERS: Emergency Medicine Emergency Medical Services
DX: S06.5X9A Traumatic subdural hemorrhage with loss of consciousness of unspecified duration, initial encounter (principal); I10 Essential (primary) hypertension; E78.5 Hyperlipidemia, unspecified; I48.91 Unspecified atrial fibrillation; E03.9 Hypothyroidism, unspecified; Z87.891 Personal history of nicotine dependence; X58.XXXA Exposure to other specified factors, initial encounter; Y93.89 Activity, other specified; Y92.89 Other specified places as the place of occurrence of the external cause; Y99.8 Other external cause status